=== PATIENT | female | born 1940 | race Caucasian/White ===

== ENCOUNTER 2016-10-02 15:46 | Observation (INO) | payer OTHER, MEDICAID ==
[2016-10-02 18:01] VITALS: BMI 25.3
[2016-10-02 18:13] LABS: BASOPHILS # (AUTO) 0.1 X10^3/uL (0.0-0.1); BASOPHILS % (AUTO) 0.9 % (0.2-1.0); EOSINOPHILS # (AUTO) 0.3 x10^3/uL (0.0-0.2); EOSINOPHILS % (AUTO) 4.7 % (0.9-2.9); HEMATOCRIT 34.1 % (36.0-47.0); LYMPHOCYTES # (AUTO) 1.3 X10^3/uL (1.3-2.9); LYMPHOCYTES % (AUTO) 18.8 % (21.0-51.0); MEAN CORPUSCULAR HEMOGLOBIN 29.6 pg (27.0-34.0); MEAN CORPUSCULAR HGB CONC 32.1 g/dL (33.0-35.0); MEAN PLATELET VOLUME 8.1 fL (7.4-11.0); MONOCYTES # (AUTO) 0.7 x10^3/uL (0.3-0.8); MONOCYTES % (AUTO) 9.3 % (0.0-13.0); NEUTROPHILS # (AUTO) 4.7 x10^3/uL (2.2-4.8); NEUTROPHILS % (AUTO) 66.3 % (42.0-75.0); PLATELET COUNT 141 X10^3/uL (150.0-450.0); RED BLOOD COUNT 3.71 X10^6/uL (3.5-5.4); RED CELL DISTRIBUTION WIDTH 14.1 % (11.6-16.5)
[2016-10-02 18:20] LABS: ALBUMIN 3.3 g/dL (3.4-5.0); CALCIUM 8.7 mg/dL (8.5-10.1); CARBON DIOXIDE 24.2 mmol/L (21-32); COR CA(FOR HYPOALB) 9.3 mg/dL (8.5-10.1); CREATININE 2.4 mg/dL (0.55-1.02); MAGNESIUM 1.8 mg/dL (1.7-2.9)
[2016-10-02 18:34] LABS: CKMB % 2.6 % (<4); CREATINE KINASE 39 Units/L (26-192); CREATINE KINASE MB < 1.0 ng/mL (0-4.0); TROPONIN I < 0.02 ng/mL (0-1.5)
[2016-10-02 19:09] LABS: BILIRUBIN,URINE NEGATIVE (NEGATIVE); BLOOD/HEMOGLOBIN,URINE 2+ (NEGATIVE); GLUCOSE, URINE NEGATIVE (NEGATIVE); KETONES,URINE NEGATIVE (NEGATIVE); LEUKOCYTE ESTERASE ,URINE 3+ (NEGATIVE); NITRITES,URINE NEGATIVE (NEGATIVE); PROTEIN,URINE 2+ (NEGATIVE); UROBILINOGEN,URINE NORMAL (NORMAL)
[2016-10-02 19:15] LABS: APPEARANCE,URINE HAZY (CLEAR); COLOR,URINE YELLOW (YELLOW)
[2016-10-02 19:16] LABS: BACTERIA,URINE 1+ /HPF (NEGATIVE); SQUAMOUS EPITHELIAL CELL,UR FEW /HPF (NEGATIVE)
[2016-10-02] MEDS ORDERED: ROCEPHIN VIAL 1 GM 1 GM in NS 50 ML IV + SPIKE MINIBAG* 50 ML IV SCH (20:00)
[2016-10-02] MEDS ORDERED: NS 1000 ML 1,000 ML IV SCH (20:00)
--- NOTE | 2016-10-02 20:49 | RAD ---
Chest AP portable Indication: Chest pain renal failure. Findings: Pacemaker leads project as expected. Cardiac monitoring leads obscure some detail. There i s no pneumothorax come effusion or consolidation. Aortic arch plaque noted. Heart size is within nor mal limits for technique. Impression: No acute chest process. Followup with PA and lateral chest as needed for increased sensi tivity. Reported By:
[2016-10-02] MEDS ORDERED: ARICEPT TAB 10 MG PO SCH (21:00)
[2016-10-02] MEDS ORDERED: LOVENOX INJ 30 MG SYR SC SCH ×2 (21:00)
[2016-10-02] MEDS ORDERED: ZOCOR TAB 20 MG PO SCH (21:00)
[2016-10-02] MEDS: NEURONTIN CAP 300 MG PO SCH (21:05)
--- NOTE | 2016-10-02 22:12 | DR.H&P ---
H&P - History & Physical for Day of: H&P Date: 10/02/16 - Chief Complaint Chief Complaint: Chest pain and Fatigue - Allergies Allergies/Adverse Reactions: Allergies Allergy/AdvReac Type Severity Reaction Status Date / Time Hydrocodone Allergy Verified 10/02/16 18:08 - History of Present Illness History of Present Illness: The patient is a 76yo WF who presents to [facility] with complaints of fatigue. The patient has for last 4mths had increasing fatigue. Patient states she can't hold out to clean or walk short distances.On Thursday patient had episode of chest pain and saw local discharging machine operator who did echo and revealed EF 35% and a "leaking valve." Patient does have significant history of CAD with 3 MIs. Last cath was 4yrs ago and had vessel 100% that was stented. Patient does have chronic kidney failure and dialysis was considered after cath 4yrs, but kidney function improved. - Past Medical History Past Medical History: Anxiety, CHF (Systolic with EF 35%), COPD, Coronary Artery Disease, Diabetes, GERD, Hypertension, Hypothyroidism, [place], Renal Disease Additional Medical History: Subdural bleed, Cystocele uses pessary, Atrial fibrillation, Chronic respiatory failure but refuses to wear O2 at HS, Carotid artery occlusion. - Past Surgical History Surgical History: Angioplasty/Stents, Hysterectomy - Family History Family Medical History: Diabetes Mellitus, Cancer, Coronary Artery Disease, Hypertension - Social History Does patient currently use any type of tobacco product: No Have you used tobacco products in the last 12 months: No Type of Tobacco Use: None Does any household member use tobacco: No Alcohol Use: None Drug Use: None - Medications Home Medications: Aspirin [Aspirin 81 mg Chewtab] 81 mg PO DAILY 10/02/16 [History Confirmed 10/02] Donepezil Hydrochloride [Aricept Tab 10 mg] 10 mg PO HS 10/02/16 [History Confirmed 10/02/16] Escitalopram Oxalate [Lexapro] 10 mg PO DAILY 10/02/16 [History Confirmed ] Esomeprazole Magnesium [Nexium] 40 mg PO DAILY 10/02/16 [History Confirmed 10/02] Gabapentin [Gabapentin] 1 cap PO TID 10/02/16 [History Confirmed 10/02/16] Glimepiride [Glimepiride] 2 mg PO DAILY 10/02/16 [History Confirmed 10/02/16] Levothyroxine Sodium [SYNTHROID 88 mcg *] 1 tab PO DAILYAC 10/02/16 [History Confirmed 10/02/16] Metoprolol Succinate Ext Rel [Toprol Xl] 25 mg PO DAILY 10/02/16 [History Confirmed 10/02/16] Ramipril [Altace 1.25 mg] 1.25 mg PO DAILY 10/02/16 [History Confirmed 10/02/16] Simvastatin [Zocor Tab 20 mg] 20 mg PO HS 10/02/16 [History Confirmed 10/02/16] - Review of Systems Constitutional: Weakness, Malaise Eyes: No Symptoms Reported ENT: No Symptoms Reported Respiratory: No Symptoms Reported Cardiovascular: Chest Pain Gastrointestinal: No Symptoms Reported Genitourinary: No Symptoms Reported Musculoskeletal: No Symptoms Reported Skin: No Symptoms Reported Neurological: No Symptoms Reported - Physical Exam Vital Signs: Temperature 97.7 F Pulse Rate [Left Brachial] 64 Respiratory Rate 13 Blood Pressure [Left Arm] 147/63 Oriented: Normal Eyes: Normal Ear: Normal Nose: Normal Throat: Normal Respiratory: Clear Throughout Cardiovascular: Normal : Normal, Other (Uses pessary) Auscultation: Bowel Sounds: Normal Palpation: Normal Tenderness: Normal Skin: Normal Musculoskeletal: Normal (Uses walker) Psychiatric: Normal Mood Description: Calm Affect: Normal Speech Pattern: Clear - Assessment/Plan (1) Chest pain with high risk for cardiac etiology Status: Acute Plan: Cardiac enzymes, EKGs (2) Fatigue Qualifiers: Fatigue type: F Encounter type: E Trimester: T Status: Acute Plan: Labs, IVFs (3) Chronic kidney disease Qualifiers: Chronic kidney disease stage: C Status: Acute Plan: IVFs. BMP AM (4) UTI (urinary tract infection) Qualifiers: Urinary tract infection type: acute cystitis Hematuria presence: H Indwelling urinary catheter type: I Encounter type: E Status: Acute Plan: Rocephin IV. Culture pending
[2016-10-02 23:44] LABS: CKMB % 3.6 % (<4); CREATINE KINASE 28 Units/L (26-192); CREATINE KINASE MB < 1.0 ng/mL (0-4.0); TROPONIN I < 0.02 ng/mL (0-1.5)
[2016-10-03] MEDS: NEURONTIN CAP 300 MG PO SCH (05:15)
[2016-10-03 06:01] LABS: BASOPHILS % (AUTO) 0.9 % (0.2-1.0); EOSINOPHILS # (AUTO) 0.3 x10^3/uL (0.0-0.2); EOSINOPHILS % (AUTO) 5.8 % (0.9-2.9); HEMOGLOBIN 10.5 g/dL (12.0-16.0); LYMPHOCYTES # (AUTO) 1.3 X10^3/uL (1.3-2.9); LYMPHOCYTES % (AUTO) 23.3 % (21.0-51.0); MEAN CORPUSCULAR HEMOGLOBIN 29.7 pg (27.0-34.0); MEAN CORPUSCULAR HGB CONC 32.8 g/dL (33.0-35.0); MEAN CORPUSCULAR VOLUME 90.6 fL (80.0-100.0); MEAN PLATELET VOLUME 8.5 fL (7.4-11.0); MONOCYTES # (AUTO) 0.6 x10^3/uL (0.3-0.8); MONOCYTES % (AUTO) 11.3 % (0.0-13.0); NEUTROPHILS # (AUTO) 3.2 x10^3/uL (2.2-4.8); NEUTROPHILS % (AUTO) 58.7 % (42.0-75.0); PLATELET COUNT 129 X10^3/uL (150.0-450.0); RED BLOOD COUNT 3.53 X10^6/uL (3.5-5.4); RED CELL DISTRIBUTION WIDTH 13.8 % (11.6-16.5); WHITE BLOOD COUNT 5.5 X10^3/uL (3.6-10.0)
[2016-10-03 06:28] LABS: BLOOD UREA NITROGEN 52 mg/dL (7-18); CALCIUM 8.2 mg/dL (8.5-10.1); CHLORIDE 109 mmol/L (98-107); CKMB % 3.6 % (<4); COR NA(FOR HYPERGLY) 143 mmol/L (136-145); CREATINE KINASE 28 Units/L (26-192); CREATINE KINASE MB < 1.0 ng/mL (0-4.0); CREATININE 2.25 mg/dL (0.55-1.02); GLUCOSE 121 mg/dL (65-99); SODIUM 142 mmol/L (136-145); TROPONIN I < 0.02 ng/mL (0-1.5); eGFR BLACK RACES 27 (>60); eGFR NON BLACK RACES 22 (>60)
[2016-10-03 06:29] VITALS: BP 167/69
[2016-10-03 06:41] LABS: CHOL/HDL RATIO 4.3 (0.0-5.0)
[2016-10-03] MEDS ORDERED: PATIENT'S HOME MEDICATION PO SCH (09:00)
[2016-10-03] MEDS ORDERED: TOPROL XL PO SCH (09:00)
[2016-10-03] MEDS ORDERED: AMARYL TAB 4 MG PO SCH (09:00)
[2016-10-03] MEDS ORDERED: ASPIRIN 81 MG CHEWTAB PO SCH (09:00)
[2016-10-03] MEDS ORDERED: LEXAPRO PO SCH (09:00)
[2016-10-03] MEDS ORDERED: NexIUM PO SCH (09:00)
[2016-10-03] MEDS ORDERED: NS 1000 ML 1,000 ML IV SCH (09:20)
[2016-10-03] MEDS ORDERED: SYNTHROID 88 mcg TAB PO SCH (16:30)
== END 2016-10-03 07:00 | disposition short-term general hospital (02) ==
LOC: ICU 15:46
PROVIDERS: ADMIT Internal Medicine; ATTEND Internal Medicine
DX: R07.89 Other chest pain (principal); R06.02 Shortness of breath; I25.10 Atherosclerotic heart disease of native coronary artery without angina pectoris; N30.00 Acute cystitis without hematuria; R53.83 Other fatigue; E03.8 Other specified hypothyroidism; K21.9 Gastro-esophageal reflux disease without esophagitis; B96.29 Other Escherichia coli [E. coli] as the cause of diseases classified elsewhere; R74.8 Abnormal levels of other serum enzymes; E11.65 Type 2 diabetes mellitus with hyperglycemia; N17.8 Other acute kidney failure; J44.9 Chronic obstructive pulmonary disease, unspecified; I12.9 Hypertensive chronic kidney disease with stage 1 through stage 4 chronic kidney disease, or unspecified chronic kidney disease; N18.9 Chronic kidney disease, unspecified; R94.31 Abnormal electrocardiogram [ECG] [EKG]
CPT/HCPCS: 36415; 71010; 80048; 80053; 80061; 81001; 82550; 82553; 83735; 84484; 85025; 85610; 85730; 87086; 87088; 87186; 93005; 93010; A4222; G0378; J0696; J1650

== ENCOUNTER 2021-04-29 10:14 | Inpatient (IN) ==
[2021-04-29 10:32] VITALS: BMI 22.6
[2021-04-29] MEDS ORDERED: ZOFRAN INJ 4 MG VIAL IVP ONE (10:57)
--- NOTE | 2021-04-29 10:57 | DR.EXTPAIN ---
HPI Time seen Time Seen by Provider: 04/29/21 10:38 PCP Primary Care Physician: Lonnie Complaint/Symptoms Chief Complaint Doctor Comments: 81 y/o female sent over from the [place] for evaluation. Has a tender area of her left buttock for several days. No known trauma. Pt is fairly bedridden. Was started on cipro few days ago, wound is reportedly + for MRSA. Area is painful, dull, does not radiate. Pain is sharp with palpation. Nothing makes it better. Pt had an episode of nausea with vomiting this am, currently better. Denies abdominal pain, no fever or chills. Chief Complaint:: Pt states she was brought to the ER for " a bruise on my butt". prison staff reports pt has a large wound that is growing MRSA. Pt also c/o n/v this am. COVID-19 Coronavirus risk:travel/contact w/high risk person: No Has patient experienced Coronavirus symptoms: No Nurses notes reviewed Nurses Notes Review: Yes Source History Provided: Patient and Half-Way Mode of arrival Mode of Arrival: Stretcher Timing Onset of Chief Complaint: 04/29/21 PMH PMH Past Medical History: Yes Past Medical History: Anxiety, CHF, COPD, Coronary Artery Disease, Diabetes, GERD, Hypertension, Hypothyroidism, [place] and Renal Disease Past Surgical History: Yes Surgical History: Angioplasty/Stents and Hysterectomy Family History History of Family Medical Conditions: Yes Family Medical History: Diabetes Mellitus, Cancer, Coronary Artery Disease and Hypertension Social History Alcohol Use: None Lives With: Other Lives Where: [facility]-Way Travel Risk Coronavirus risk:travel/contact w/high risk person: No Has patient experienced Coronavirus symptoms: No Infectious screening In the last 2 months have you had wt loss of >10#?: NO Have you had fever, night sweats or hemotysis?: No Have you traveled outside the country in the last 6 months?: No Isolation: Standard ROS Review of Systems Constitutional: No Symptoms Reported Eyes: No Symptoms Reported ENTM: No Symptoms Reported Respiratoy: No Symptoms Reported Cardiovascular: No Symptoms Reported Gastrointestinal/Abdominal: Nausea and Vomiting Genitourinary: No Symptoms Reported Neurological: No Symptoms Reported Musculoskeletal: No Symptoms Reported Integumentary: Wound (left buttocks) Hematologic/Lymphatic: No Symptoms Reported Psychiatric: No Symptoms Reported All Other Systems: Reviewed and Negative PE Vital Signs Vitals: Temperature 98.1 F Pulse Rate 65 Respiratory Rate 18 Blood Pressure [Left Arm] 167/69 Blood Pressure 135/63 O2 Sat by Pulse Oximetry 97 General Limitations: No Limitations General Appearance: Alert and In No Apparent Distress Eyes Eye exam: Normal Appearance ENT ENT Exam: Normal Exam Neck Neck Exam: Normal Inspection Chest Chest Inspection: Normal Inspection Respiratory Respiratory Exam: Normal Lung Sounds Bilat; negative Accessory Muscle Use and Respiratory Distress Respiratory Exam: Bilateral: Clear to Auscultation Cardiovascular Cardiovascular Exam: Regular Rate, Normal Rhythm and Normal Heart Sounds Abdominal Exam Abdominal Exam: Normal Inspection, Normal Bowel Sounds and Soft; negative Tenderness Extremities Extremities Exam: Normal Inspection Neurological Neurological Exam: Alert, Oriented X3 and CN II-XII Intact; negative Motor Sensory Deficit Psychiatric Psychiatric Exam: Normal Affect Skin Skin Exam: Warm, Dry and Other (Left buttocks, 3 x 4 cm soft, tender, ecchymotic area with skin breakdown.) COURSE Treatment Treatment: 81 y/o female sent over from the [place] for evaluation. Has a tender left buttock wound, with skin breakdown. Had an episode of vomiting this am. W/u init iated. Given IV fluids, IV zofran. 1152- labs show acute kidney injury - elevated BUN/Cr. Cr 4.66, was 2.0 on last lab last month. WBC elevated to 15,900. Discussed with Dr Fleming, will admit for hydration. ROR Labs Reviewed Laboratory Results Reviewed?: Yes Result Diagrams: 04/29/21 11:10 04/29/21 11:10 Laboratory: WBC 15.9 X10^3/uL (3.6-10.0) H 04/29/21 11:10 RBC 3.37 X10^6/uL (3.5-5.4) L 04/29/21 11:10 Hgb 9.8 g/dL (12.0-16.0) L 04/29/21 11:10 Hct 29.6 % (36.0-47.0) L 04/29/21 11:10 MCV 87.6 fL (80.0-100.0) 04/29/21 11:10 MCH 29.0 pg (27.0-34.0) 04/29/21 11:10 MCHC 33.1 g/dL (33.0-35.0) 04/29/21 11:10 RDW 15.1 % (11.6-16.5) 04/29/21 11:10 Plt Count 155 X10^3/uL (150.0-450.0) 04/29/21 11:10 MPV 7.6 fL (7.4-11.0) 04/29/21 11:10 Neut % (Auto) 87.1 % (42.0-75.0) H 04/29/21 11:10 Lymph % (Auto) 5.9 % (21.0-51.0) L 04/29/21 11:10 [place] % (Auto) 5.9 % (0.0-13.0) 04/29/21 11:10 Eos % (Auto) 0.9 % (0.9-2.9) 04/29/21 11:10 Baso % (Auto) 0.2 % (0.2-1.0) 04/29/21 11:10 Neut # (Auto) 13.8 x10^3/uL (2.2-4.8) H 04/29/21 11:10 Lymph # (Auto) 0.9 X10^3/uL (1.3-2.9) L 04/29/21 11:10 [place] # (Auto) 0.9 x10^3/uL (0.3-0.8) H 04/29/21 11:10 Eos # (Auto) 0.1 x10^3/uL (0.0-0.2) 04/29/21 11:10 Baso # (Auto) 0.0 X10^3/uL (0.0-0.1) 04/29/21 11:10 Absolute Nucleated RBC 0.0 /100WBC 04/29/21 11:10 Sodium 134 mmol/L (136-145) L 04/29/21 11:10 Corrected Sodium TNP 04/29/21 11:10 Potassium 5.2 mmol/L (3.5-5.1) H 04/29/21 11:10 Chloride 104 mmol/L (98-107) 04/29/21 11:10 Carbon Dioxide 17.5 mmol/L (21-32) L 04/29/21 11:10 BUN 94 mg/dL (7-18) H 04/29/21 11:10 Creatinine 4.66 mg/dL (0.55-1.02) H 04/29/21 11:10 Est GFR (MDRD) Af Amer 12 (>60) L 04/29/21 11:10 Est GFR (MDRD) Non-Af 10 (>60) L 04/29/21 11:10 Glucose 69 mg/dL (65-99) 04/29/21 11:10 Lactic Acid 0.6 mmol/L (0.4-2.0) 04/29/21 11:10 Calcium 8.3 mg/dL (8.5-10.1) L 04/29/21 11:10 Corrected Calcium 9.6 mg/dL (8.5-10.1) 04/29/21 11:10 Total Bilirubin 0.40 mg/dL (0.2-1.0) 04/29/21 11:10 AST 19 Units/L (15-37) 04/29/21 11:10 ALT 11 Units/L (12-78) L 04/29/21 11:10 Alkaline Phosphatase 131 Units/L (46-116) H 04/29/21 11:10 Total Protein 7.2 g/dL (6.4-8.2) 04/29/21 11:10 Albumin 2.4 g/dL (3.4-5.0) L 04/29/21 11:10 Globulin 4.8 g/dL (2.5-4.5) H 04/29/21 11:10 Albumin/Globulin Ratio 0.5 Ratio (1.1-2.1) L 04/29/21 11:10 SARS-CoV-2 (PCR) Negative (NEGATIVE) 04/29/21 11:57 Opioid Opioid Risk Tool Age (Jacky box if 16-45): No History of Preadolescent Sexual Abuse: No Total: 0 Total Score Risk Category: Low Risk Copyright: Jamal BURDICK predicting aberrant behaviors Diagnosis Discharge Problem: Acute nontraumatic kidney injury, Decubitus ulcer of left buttock, stage 2 Instructions Forms: Precautions for COVID19 [facility] Patient Portal Social Distancing
[2021-04-29] MEDS ORDERED: NS 500 ML IV 500 ML IV ONE (10:58)
[2021-04-29] MEDS ORDERED: NS 1,000 ML IV 1,000 ML ONE (11:04)
[2021-04-29] MEDS ORDERED: ZOFRAN INJ 4 MG VIAL ONE (11:04)
[2021-04-29 11:30] LABS: BASOPHILS % (AUTO) 0.2 % (0.2-1.0); EOSINOPHILS # (AUTO) 0.1 x10^3/uL (0.0-0.2); EOSINOPHILS % (AUTO) 0.9 % (0.9-2.9); HEMATOCRIT 29.6 % (36.0-47.0); HEMOGLOBIN 9.8 g/dL (12.0-16.0); LYMPHOCYTES # (AUTO) 0.9 X10^3/uL (1.3-2.9); LYMPHOCYTES % (AUTO) 5.9 % (21.0-51.0); MEAN CORPUSCULAR HGB CONC 33.1 g/dL (33.0-35.0); MEAN CORPUSCULAR VOLUME 87.6 fL (80.0-100.0); MEAN PLATELET VOLUME 7.6 fL (7.4-11.0); MONOCYTES # (AUTO) 0.9 x10^3/uL (0.3-0.8); MONOCYTES % (AUTO) 5.9 % (0.0-13.0); NEUTROPHILS # (AUTO) 13.8 x10^3/uL (2.2-4.8); NEUTROPHILS % (AUTO) 87.1 % (42.0-75.0); PLATELET COUNT 155 X10^3/uL (150.0-450.0); RED BLOOD COUNT 3.37 X10^6/uL (3.5-5.4); RED CELL DISTRIBUTION WIDTH 15.1 % (11.6-16.5); WHITE BLOOD COUNT 15.9 X10^3/uL (3.6-10.0)
[2021-04-29 11:43] LABS: ALANINE AMINOTRANSFERASE 11 Units/L (12-78); ALBUMIN 2.4 g/dL (3.4-5.0); ALKALINE PHOSPHATASE 131 Units/L (46-116); ASPARTATE AMINO TRANSFERASE 19 Units/L (15-37); BLOOD UREA NITROGEN 94 mg/dL (7-18); CALCIUM 8.3 mg/dL (8.5-10.1); CARBON DIOXIDE 17.5 mmol/L (21-32); CHLORIDE 104 mmol/L (98-107); COR CA(FOR HYPOALB) 9.6 mg/dL (8.5-10.1); CREATININE 4.66 mg/dL (0.55-1.02); SODIUM 134 mmol/L (136-145); TOTAL PROTEIN 7.2 g/dL (6.4-8.2); eGFR NON BLACK RACES 10 (>60)
[2021-04-29 11:50] LABS: LACTIC ACID 0.6 mmol/L (0.4-2.0)
[2021-04-29] MEDS ORDERED: COLACE CAP 100 MG PO PRN (14:27)
[2021-04-29] MEDS ORDERED: ULTRAM PO PRN (14:27)
[2021-04-29] MEDS: D5 1/2 NS 1,000 ML 1,000 ML IV SCH ×2 (15:20→21:58)
[2021-04-29] MEDS: ZYVOX 600MG IV 600 MG/300 ML BAG IV SCH ×2 (15:20→21:06)
[2021-04-29] MEDS ORDERED: PHARMACY CONSULT LTC MEDICATIONS XX SCH (16:00)
[2021-04-29] MEDS: NS 1,000 ML IV 1,000 ML IV SCH ×2 (17:00→21:04)
[2021-04-29 17:06] LABS: BILIRUBIN,URINE NEGATIVE (NEGATIVE); BLOOD/HEMOGLOBIN,URINE NEGATIVE (NEGATIVE); GLUCOSE, URINE NEGATIVE (NEGATIVE); KETONES,URINE NEGATIVE (NEGATIVE); LEUKOCYTE ESTERASE ,URINE NEGATIVE (NEGATIVE); NITRITES,URINE NEGATIVE (NEGATIVE); PROTEIN,URINE 2+ (NEGATIVE); UROBILINOGEN,URINE NORMAL (NORMAL)
[2021-04-29 17:14] LABS: APPEARANCE,URINE SLIGHTLY HAZY (CLEAR); BACTERIA,URINE 2+ /HPF (NEGATIVE); COLOR,URINE YELLOW (YELLOW); SQUAMOUS EPITHELIAL CELL,UR RARE /HPF (NEGATIVE)
[2021-04-29] MEDS: SYNTHROID 88 mcg TAB PO SCH (17:35)
--- NOTE | 2021-04-29 18:30 | US ---
HISTORYLARGE BED SORE ON LEFT BUTTOCKSSTUDYSOFT TISSUE ABDOMINAL SONOGRAMCOMPARISONNo relevant prior studies available.[id number] static images were reviewed.FINDINGSNonspecific edema in the soft tissues at the area of clinical concern.No abscess collection identified.IMPRESSION1. Nonspecific edema in the soft tissues at the area of clinical concern.2. No abscess collection identified.Electronically signed by: Patrick Muñoz (Apr 29, 2021 18:28:14)
[2021-04-29] MEDS: ARICEPT TAB 10 MG PO SCH (21:05)
[2021-04-29] MEDS: SNACK - Diabetic Appropriate PO SCH (21:05)
[2021-04-29] MEDS: ZOCOR TAB 20 MG PO SCH (21:05)
[2021-04-29] MEDS: COREG TAB 12.5 MG PO SCH (21:05)
[2021-04-30 05:30] LABS: BASOPHILS % (AUTO) 0.2 % (0.2-1.0); EOSINOPHILS # (AUTO) 0.2 x10^3/uL (0.0-0.2); EOSINOPHILS % (AUTO) 2.1 % (0.9-2.9); HEMATOCRIT 26.8 % (36.0-47.0); HEMOGLOBIN 8.8 g/dL (12.0-16.0); LYMPHOCYTES # (AUTO) 0.9 X10^3/uL (1.3-2.9); LYMPHOCYTES % (AUTO) 7.6 % (21.0-51.0); MEAN CORPUSCULAR HEMOGLOBIN 29.1 pg (27.0-34.0); MEAN CORPUSCULAR VOLUME 88.1 fL (80.0-100.0); MEAN PLATELET VOLUME 7.9 fL (7.4-11.0); MONOCYTES # (AUTO) 0.8 x10^3/uL (0.3-0.8); MONOCYTES % (AUTO) 7.1 % (0.0-13.0); NEUTROPHILS # (AUTO) 9.6 x10^3/uL (2.2-4.8); PLATELET COUNT 132 X10^3/uL (150.0-450.0); RED BLOOD COUNT 3.04 X10^6/uL (3.5-5.4); RED CELL DISTRIBUTION WIDTH 14.8 % (11.6-16.5); WHITE BLOOD COUNT 11.6 X10^3/uL (3.6-10.0)
[2021-04-30 05:39] LABS: ALBUMIN 2.1 g/dL (3.4-5.0); CALCIUM 7.5 mg/dL (8.5-10.1); CARBON DIOXIDE 19.3 mmol/L (21-32); CREATININE 4.1 mg/dL (0.55-1.02); TOTAL PROTEIN 6.4 g/dL (6.4-8.2)
[2021-04-30] MEDS ORDERED: LASIX PO SCH (09:00)
[2021-04-30] MEDS ORDERED: TOPROL XL PO SCH (09:00)
[2021-04-30] MEDS ORDERED: LEXAPRO PO SCH (09:00)
[2021-04-30] MEDS: PLAVIX PO SCH (09:19)
[2021-04-30] MEDS: ASPIRIN 81 MG CHEWTAB PO SCH (09:19)
[2021-04-30] MEDS: ISOSORBIDE MONONITRATE ER 24-HR PO SCH (09:19)
[2021-04-30] MEDS: COREG TAB 12.5 MG PO SCH ×2 (09:19→21:00)
[2021-04-30] MEDS: ZYVOX 600MG IV 600 MG/300 ML BAG IV SCH ×2 (09:20→22:13)
[2021-04-30] MEDS: ZESTRIL TAB 40 MG PO SCH (09:20)
[2021-04-30] MEDS: PROTONIX TAB 40 MG PO SCH (09:20)
[2021-04-30] MEDS ORDERED: NS 500 ML IV 500 ML IV ONE (15:00)
[2021-04-30] MEDS: SYNTHROID 88 mcg TAB PO SCH (16:46)
[2021-04-30] MEDS: NS 1,000 ML IV 1,000 ML IV SCH (18:58)
[2021-04-30] MEDS: SNACK - Diabetic Appropriate PO SCH (20:43)
[2021-04-30] MEDS: D5 1/2 NS 1,000 ML 1,000 ML IV SCH (21:00)
[2021-04-30] MEDS: ZOCOR TAB 20 MG PO SCH (21:00)
[2021-04-30] MEDS: ARICEPT TAB 10 MG PO SCH (21:00)
--- NOTE | 2021-04-30 22:02 | DR.CONSULT ---
CONSULT Consultation for Day of: Date: 04/30/21 Chief Complaint Chief Complaint: 81 year old female currently in local [facility] Facility. She is not ambulatory and presented with red, fluctuant area of her left buttock. Patient has been noted to have increase of creatinine from a baseline of 2 to greater than 4 ,consistent with acute infection and dehydration. Allergies Allergies Allergy/AdvReac Type Severity Reaction Status Date / Time MS Hydrocodone [Hydrocodone] Allergy Verified 10/02/16 18:08 History of Present Illness History of Present Illness: as above . Currently on IV Linezoloid Past Medical History Past Medical History: Anxiety, CHF, COPD, Coronary Artery Disease, Diabetes, GERD, Hypertension, Hypothyroidism, [place] and Renal Disease Additional Medical History: Subdural bleed, Cystocele uses pessary, Atrial fibrillation, Chronic respiatory failure but refuses to wear O2 at HS, Carotid artery occlusion. Past Surgical History Surgical History: Ortho Surgery Family History Family Medical History: Diabetes Mellitus and Hypertension Social History Does patient currently use any type of tobacco product: No Have you used tobacco products in the last 12 months: No Type of Tobacco Use: None Does any household member use tobacco: No Alcohol Use: None Drug Use: None Medications Home Medications: MS Hydrocodone [Hydrocodone] Allergy (Verified 10/02/16 18:08) CONTINUE taking the following medications atorvastatin 40 mg PO HS 04/29/21 [History] carvedilol 12.5 mg PO BID 04/29/21 [History] citalopram [Celexa] 10 mg PO HS 04/29/21 [History] clopidogrel 75 mg PO DAILY 04/29/21 [History] docusate sodium [Colace] 100 mg PO BID PRN 04/29/21 [History] furosemide 20 mg PO DAILY 04/29/21 [History] insulin regular human [Novolin R Regular U-100 Insuln] 1 sliding scale dose SUBCUT USEASDIRECTD 04/29/21 [History] isosorbide mononitrate 60 mg PO DAILY 04/29/21 [History] lisinopril 40 mg PO DAILY 04/29/21 [History] ondansetron HCl [Zofran] 4 mg PO Q8H PRN 04/29/21 [History] pantoprazole [Protonix] 40 mg PO QAM 04/29/21 [History] phenyleph-shark [id number] [Preparation H] 1 applic GA BID PRN 04/29/21 [History] tramadol 50 mg PO Q8H PRN 04/29/21 [History] Hgb =8.8, WBC=11.6, Cr= 4.1 04/30 04/29 WBC= 15.9, Cr+4.66 Review of Systems Constitutional: No Symptoms Reported; denies See HPI, Fever, Sweats, Weakness, Malaise and Other Eyes: No Symptoms Reported ENT: No Symptoms Reported Respiratory: No Symptoms Reported Cardiovascular: No Symptoms Reported Gastrointestinal: No Symptoms Reported Genitourinary: No Symptoms Reported Musculoskeletal: No Symptoms Reported Skin: Other (swelliThe holiday special ng left buttock with small amount of bloody drainage ) Neurological: Other (reported anxiety) Physical Exam Vital Signs: Temperature 99.1 F Pulse Rate [Bilateral Radial] 73 Pulse Rate 65 Respiratory Rate 19 Blood Pressure [Left Arm] 128/56 Blood Pressure 135/63 O2 Sat by Pulse Oximetry 92 Oriented: Person; negative Normal, Time, Place, Not Oriented, Unable to test and Other Eyes: Normal Ear: Normal Nose: Normal Throat: Normal Respiratory: Clear Throughout Cardiovascular: Normal : Normal Tenderness: Normal Skin: Normal Musculoskeletal: Normal (but globally weak) Psychiatric: Anxiety and Depression Mood Description: Calm Affect: Flat Plan (1) Abscess of left buttock: Status: Acute Plan: Continue IV Linezolid , plan incision and drainage of the left buttock, continue hydration, monito blood sugars (2) Diabetes 1.5, managed as type 1: Status: Acute (3) Coronary artery disease: Status: Acute (4) Hypertension: Status: Acute (5) Hypothyroid: Status: Acute (6) GERD (gastroesophageal reflux disease): Status: Acute (7) Anxiety: Status: Acute (8) Acute nontraumatic kidney injury: Status: Acute
[2021-05-01 05:41] LABS: BASOPHILS % (AUTO) 0.1 % (0.2-1.0); EOSINOPHILS # (AUTO) 0.2 x10^3/uL (0.0-0.2); EOSINOPHILS % (AUTO) 1.6 % (0.9-2.9); HEMATOCRIT 24.7 % (36.0-47.0); HEMOGLOBIN 8.2 g/dL (12.0-16.0); LYMPHOCYTES # (AUTO) 0.8 X10^3/uL (1.3-2.9); LYMPHOCYTES % (AUTO) 6.5 % (21.0-51.0); MEAN CORPUSCULAR HEMOGLOBIN 29.1 pg (27.0-34.0); MEAN CORPUSCULAR HGB CONC 33.1 g/dL (33.0-35.0); MEAN PLATELET VOLUME 7.8 fL (7.4-11.0); MONOCYTES # (AUTO) 0.9 x10^3/uL (0.3-0.8); MONOCYTES % (AUTO) 7.2 % (0.0-13.0); NEUTROPHILS # (AUTO) 10.7 x10^3/uL (2.2-4.8); NEUTROPHILS % (AUTO) 84.6 % (42.0-75.0); PLATELET COUNT 129 X10^3/uL (150.0-450.0); RED BLOOD COUNT 2.81 X10^6/uL (3.5-5.4); RED CELL DISTRIBUTION WIDTH 14.7 % (11.6-16.5); WHITE BLOOD COUNT 12.6 X10^3/uL (3.6-10.0)
[2021-05-01 05:55] LABS: ALANINE AMINOTRANSFERASE 10 Units/L (12-78); ALBUMIN 1.9 g/dL (3.4-5.0); ALKALINE PHOSPHATASE 119 Units/L (46-116); ASPARTATE AMINO TRANSFERASE 20 Units/L (15-37); BLOOD UREA NITROGEN 74 mg/dL (7-18); CALCIUM 7.3 mg/dL (8.5-10.1); CARBON DIOXIDE 15.2 mmol/L (21-32); CHLORIDE 104 mmol/L (98-107); CREATININE 3.82 mg/dL (0.55-1.02); SODIUM 131 mmol/L (136-145); TOTAL PROTEIN 5.9 g/dL (6.4-8.2); eGFR NON BLACK RACES 12 (>60)
[2021-05-01] MEDS ORDERED: D50W ABBOJECT SYR IV ONE ×2 (06:02→17:40)
[2021-05-01] MEDS ORDERED: D50W ABBOJECT SYR ONE ×2 (06:04→17:39)
[2021-05-01] MEDS: ISOSORBIDE MONONITRATE ER 24-HR PO SCH (08:58)
[2021-05-01] MEDS: COREG TAB 12.5 MG PO SCH ×2 (08:58→20:47)
[2021-05-01] MEDS: ASPIRIN 81 MG CHEWTAB PO SCH (08:58)
[2021-05-01] MEDS: PLAVIX PO SCH (08:58)
[2021-05-01] MEDS: PROTONIX TAB 40 MG PO SCH (08:59)
[2021-05-01] MEDS: ZESTRIL TAB 40 MG PO SCH (09:00)
[2021-05-01] MEDS: ZYVOX 600MG IV 600 MG/300 ML BAG IV SCH ×2 (09:00→20:48)
[2021-05-01] MEDS: D5 1/2 NS 1,000 ML 1,000 ML IV SCH (10:03)
[2021-05-01] MEDS ORDERED: FENTANYL VIAL INJ 100 mcg ONE (12:49)
[2021-05-01] MEDS ORDERED: PEPCID 20 MG IV PREMIX* 50 ML IV ONE (12:49)
[2021-05-01] MEDS ORDERED: NS 1,000 ML IV 1,000 ML ONE (13:03)
[2021-05-01] MEDS ORDERED: VERSED ONE (13:15)
[2021-05-01] MEDS ORDERED: DIPRIVAN VIAL ONE (13:15)
[2021-05-01] MEDS ORDERED: KETALAR ONE (13:15)
[2021-05-01] MEDS ORDERED: MARCAINE 0.5% ONE (13:54)
[2021-05-01] MEDS ORDERED: BETADINE SOLN ONE (14:06)
--- NOTE | 2021-05-01 15:22 | OR.IMMED ---
IMMEDIATE POST-OP NOTE Immediate Post-Op Note Pre-Op Diagnosis: Buttock abscess 10 x 10 by 5 cm., lack of adequate IV access Post-Op Diagnosis: Same Procedure: incision and drainage simple left buttock abscess [id number] cm , right internal jugular vein triple Lumen catheter placement Description of Procedure: see operative summary Surgeon/Pattern Room Attendant: Leidy Findings: as above Specimens Removed: none Estimated Blood Loss: < 20 cc Drains: NONE Complications: none Progress Notes: To PACU then to floor , CXR showed good placement triple lumen catheter, no obvious pneumothorax , continue IV antibiotics, cultures obtained, daily dressing changes of abscess Condition: Stable Final Diagnosis: left buttock abscess, pre renal azotemia
--- NOTE | 2021-05-01 15:35 | RAD ---
HISTORYCENTRAL LINE PLACEMENT.brSTUDYCHEST, 1 VIEWCOMPARISONJune 2020OUR [facility] HOSPITALNIQUEChes radiographic imaging, AP portable projection, 2 imagesFINDINGSMild cardiomegaly.Pacemaker in place.Right internal jugular central line tip is near the cavoatrial junction; partially occluded by the overlying wires to the pacemaker.No focal airspace disease.No pleural effusion.No pneumothorax.No acute osseous abnormality.IMPRESSION1. Left basilar airspace disease could represent atelectasis or infiltrate.2. Right internal jugular central line tip is near the cavoatrial junction; partially occluded by the overlying wires to the pacemaker.Electronically signed by: Patrick Muñoz (May 01, 2021 15:32:09)
--- NOTE | 2021-05-01 15:45 | DR.OPNOTE ---
OP NOTE Pre-Op Diagnosis: Left buttock abscess Post-Op Diagnosis: same Procedure Date Date Of Procedure: 05/01/21 Procedure: The patient was taken to the operative suite and placed in the right lateral position. Time out for the procedure obtained. Left buttock area prepped and draped in sterile fashion. Transverse 10cm incision was placed over the abscess, gross purulence obtained , Cultures obtained and abscess cavity irrigated. Packed with Kerlix gauze, covered with 4x4s and an ABD dressing and mesh panties applied. Type of Anesthesia: Local (10 cc 0.5 5 Marcaine) Anesthesia Comment: plus MAC Findings: 10 by 10 by 5 cm abscess left buttock Specimen/Pathology: cultures left buttock abscess Type of Fluids Used:: Lactated Ringers EBL: minimal Drains/Tubes Placed: None Cultures: yes Complications:: none Needle/Sponge Count:: correct Disposition/Condition: Pt. tolerated procedure without difficulty. Taken to PACU in stable condition.
--- NOTE | 2021-05-01 15:53 | DR.OPNOTE ---
OP NOTE Pre-Op Diagnosis: left buttock abscess, lack of IV access Post-Op Diagnosis: same Procedure Date Date Of Procedure: 05/01/21 Procedure: After completion of the incision and drainage of the left buttock abscess, the patient was placed in the Supine position and the right chest and neck prepped and draped in sterile fashion. Time out for the procedure obtained. Patient in the Trendelenburg position. The skin underlying the right clavicle was infiltrated with 0. 5% Marcaine . The right side was selected as the patient has a pacemaker/ defibrillator on the left side. Multiple attempts to puncture the right subclavian vein were not successful. At this point ultra- sonography was used to identify the right internal jugular vein and the skin overlying it infiltrated with 0. 5% Marcaine and the right internal jugular vein punctured with the 16 gauge needle and guidewire placed. Needle removed. Insion made over the wire at the skin level and dilator placed over the wire into the right internal jugular vein. Dilator removed and exchanged for the triple lumen catheter which was placed over the guide wire and the guidewire removed. All ports aspirated of blood and flushed with heparinized saline . The catheter secure to the skin with interrupted sutures after applying Biopatch over the entrance to the skin. Post-procedure chest x-ray showed no obvious pneumothorax with good placement of the catheter. Type of Anesthesia: Local (0.5 % Marcaine ) Anesthesia Comment: plus MAC Findings: as above EBL: minimal Complications:: none Needle/Sponge Count:: correct Disposition/Condition: Pt. tolerated procedure without difficulty. taken to PACU in stable condition.
[2021-05-01] MEDS: SYNTHROID 88 mcg TAB PO SCH ×2 (17:30→17:37)
[2021-05-01] MEDS: ARICEPT TAB 10 MG PO SCH (20:47)
[2021-05-01] MEDS: SNACK - Diabetic Appropriate PO SCH (20:47)
[2021-05-01] MEDS: ZOCOR TAB 20 MG PO SCH (20:48)
[2021-05-02] MEDS: NovoLIN R (or HumuLIN R) SUBCUT PRN ×4 (06:17→20:37)
[2021-05-02] MEDS: D5 1/2 NS 1,000 ML 1,000 ML IV SCH (06:18)
[2021-05-02] MEDS: ASPIRIN 81 MG CHEWTAB PO SCH (08:51)
[2021-05-02] MEDS: PLAVIX PO SCH (08:51)
[2021-05-02] MEDS: COREG TAB 12.5 MG PO SCH ×2 (08:51→20:34)
[2021-05-02] MEDS: MILK OF MAGNESIA PO SCH (08:51)
[2021-05-02] MEDS: ZESTRIL TAB 40 MG PO SCH (08:51)
[2021-05-02] MEDS: PROTONIX TAB 40 MG PO SCH (08:51)
[2021-05-02] MEDS: ISOSORBIDE MONONITRATE ER 24-HR PO SCH (08:51)
[2021-05-02] MEDS: ZYVOX 600MG IV 600 MG/300 ML BAG IV SCH ×2 (08:51→20:34)
[2021-05-02] MEDS: NS 1,000 ML IV 1,000 ML IV SCH (10:04)
--- NOTE | 2021-05-02 10:18 | PCM.PROG ---
Progress Note Progress Note for Day of Date of Exam: 05/02/21 Subjective Subjective: Patient seen at bedside, no events overnight. Patient was noted to have low blood glucose yesterday evening 35 and was started back on D51/2 NS. Her FSBG have been elevated this morning, high 300s. She reports eating well. She did have left buttock I&D yesterday. She also had central line placed due to poor venous access. Labs ordered for today Wound Cx: Gram (-) rods, Prev Cx MRSA Blood Cx (-) Plan: Continue wound care, IV antibiotics. Follow surgery recommendations. Will switch to NS at 50cc/hr. Monitor FSBG. Follow labs from today. Follow final Cx. Discussed with family member at bedside. Monitor AM labs. Past Medical Family Social History Past Med/Fam/Surg Hx: No changes since H&P Allergies: Allergies hydrocodone Allergy (Verified 05/01/21 08:16) Review of Systems ROS: No change since H&P Vital Signs and I&O's Vital Signs: Temperature 98.1 F Pulse Rate [Bilateral Radial] 80 Pulse Rate 69 Respiratory Rate 21 Blood Pressure [Left Arm] 133/64 Blood Pressure 107/52 O2 Sat by Pulse Oximetry 100 Intake and Output: Intake & Output 04/29/21 04/30/21 05/01/21 05/02/21 23:59 23:59 23:59 23:59 Intake Total 1232 / 1232 2976 / 2976 1718 / 1718 600 / 600 Output Total 0 / 0 100 / 100 Balance 1232 / 1232 2976 / 2976 1618 / 1618 600 / 600 Physical Exam Oriented: Person; negative Normal, Time, Place, Not Oriented, Unable to test and Other Eyes: Normal Ear: Normal Nose: Normal Throat: Normal Respiratory: Generalized and Diminished Cardiovascular: Normal Auscultation: Bowel Sounds: Normal Tenderness: Normal Skin: Normal Musculoskeletal: Normal (but globally weak) Psychiatric: Anxiety and Depression Mood Description: Calm Affect: Flat Speech Pattern: Clear and Appropriate Laboratory and Diagnostics Result Diagrams: 05/01/21 04:55 05/01/21 17:50 Labs: 05/01/21 14:17 Buttock Wound Gram Stain - Final 05/01/21 14:17 Buttock Wound Culture - Preliminary 04/29/21 11:10 Blood Blood Culture - Preliminary 04/29/21 11:05 Blood Blood Culture - Preliminary 04/29/21 16:57 Urine,Catheterized Urine Culture - Final Laboratory WBC 12.6 X10^3/uL (3.6-10.0) H 05/01/21 04:55 RBC 2.81 X10^6/uL (3.5-5.4) L 05/01/21 04:55 Hgb 8.2 g/dL (12.0-16.0) L 05/01/21 04:55 Hct 24.7 % (36.0-47.0) L 05/01/21 04:55 MCV 88.0 fL (80.0-100.0) 05/01/21 04:55 MCH 29.1 pg (27.0-34.0) 05/01/21 04:55 MCHC 33.1 g/dL (33.0-35.0) 05/01/21 04:55 RDW 14.7 % (11.6-16.5) 05/01/21 04:55 Plt Count 129 X10^3/uL (150.0-450.0) L 05/01/21 04:55 MPV 7.8 fL (7.4-11.0) 05/01/21 04:55 Neut % (Auto) 84.6 % (42.0-75.0) H 05/01/21 04:55 Lymph % (Auto) 6.5 % (21.0-51.0) L 05/01/21 04:55 [place] % (Auto) 7.2 % (0.0-13.0) 05/01/21 04:55 Eos % (Auto) 1.6 % (0.9-2.9) 05/01/21 04:55 Baso % (Auto) 0.1 % (0.2-1.0) L 05/01/21 04:55 Neut # (Auto) 10.7 x10^3/uL (2.2-4.8) H 05/01/21 04:55 Lymph # (Auto) 0.8 X10^3/uL (1.3-2.9) L 05/01/21 04:55 [place] # (Auto) 0.9 x10^3/uL (0.3-0.8) H 05/01/21 04:55 Eos # (Auto) 0.2 x10^3/uL (0.0-0.2) 05/01/21 04:55 Baso # (Auto) 0.0 X10^3/uL (0.0-0.1) 05/01/21 04:55 Absolute Nucleated RBC 0.0 /100WBC 05/01/21 04:55 Sodium 131 mmol/L (136-145) L 05/01/21 04:55 Corrected Sodium TNP 05/01/21 04:55 Potassium 4.3 mmol/L (3.5-5.1) 05/01/21 04:55 Chloride 104 mmol/L (98-107) 05/01/21 04:55 Carbon Dioxide 15.2 mmol/L (21-32) L 05/01/21 04:55 BUN 74 mg/dL (7-18) H 05/01/21 04:55 Creatinine 3.82 mg/dL (0.55-1.02) H 05/01/21 04:55 Est GFR (MDRD) Af Amer 15 (>60) L 05/01/21 04:55 Est GFR (MDRD) Non-Af 12 (>60) L 05/01/21 04:55 Glucose 41 mg/dL (65-99) L* 05/01/21 17:50 POC Glucose (mg/dL) 386 mg/dL (65-99) H 05/02/21 08:54 Lactic Acid 0.6 mmol/L (0.4-2.0) 04/29/21 11:10 Calcium 7.3 mg/dL (8.5-10.1) L 05/01/21 04:55 Corrected Calcium 9.0 mg/dL (8.5-10.1) 05/01/21 04:55 Total Bilirubin 0.50 mg/dL (0.2-1.0) 05/01/21 04:55 AST 20 Units/L (15-37) 05/01/21 04:55 ALT 10 Units/L (12-78) L 05/01/21 04:55 Alkaline Phosphatase 119 Units/L (46-116) H 05/01/21 04:55 Total Protein 5.9 g/dL (6.4-8.2) L 05/01/21 04:55 Albumin 1.9 g/dL (3.4-5.0) L 05/01/21 04:55 Globulin 4.0 g/dL (2.5-4.5) 05/01/21 04:55 Albumin/Globulin Ratio 0.5 Ratio (1.1-2.1) L 05/01/21 04:55 Specimen Type Catherized urine 04/29/21 16:57 Urine Color Yellow (YELLOW) 04/29/21 16:57 Urine Appearance Slightly hazy (CLEAR) 04/29/21 16:57 Urine pH 5.0 (5.0 - 8.0) 04/29/21 16:57 Ur Specific [place] 1.020 (1.000-1.030) 04/29/21 16:57 Urine Protein 2+ (NEGATIVE) 04/29/21 16:57 Urine Glucose (UA) Negative (NEGATIVE) 04/29/21 16:57 Urine Ketones Negative (NEGATIVE) 04/29/21 16:57 Urine Occult Blood Negative (NEGATIVE) 04/29/21 16:57 Urine Nitrite Negative (NEGATIVE) 04/29/21 16:57 Urine Bilirubin Negative (NEGATIVE) 04/29/21 16:57 Urine Urobilinogen Normal (NORMAL) 04/29/21 16:57 Ur Leukocyte Esterase Negative (NEGATIVE) 04/29/21 16:57 Urine RBC 3-5 /HPF (0-3) A 04/29/21 16:57 Urine WBC 3-5 /HPF (0-5) 04/29/21 16:57 Ur Squamous Epith Cells Rare /HPF (NEGATIVE) 04/29/21 16:57 Urine Bacteria 2+ /HPF (NEGATIVE) 04/29/21 16:57 Ur Culture Indicated? Yes/culture set up 04/29/21 16:57 SARS-CoV-2 (PCR) Negative (NEGATIVE) 04/29/21 11:57 Plan (1) Abscess of left buttock: Status: Acute (2) Diabetes 1.5, managed as type 1: Status: Acute (3) Coronary artery disease: Status: Acute (4) Hypertension: Status: Acute (5) Hypothyroid: Status: Acute (6) GERD (gastroesophageal reflux disease): Status: Acute (7) Anxiety: Status: Acute (8) Acute nontraumatic kidney injury: Status: Acute (9) Hypoglycemia: Status: Acute
[2021-05-02 10:28] LABS: BASOPHILS % (AUTO) 0.1 % (0.2-1.0); HEMATOCRIT 23.5 % (36.0-47.0); HEMOGLOBIN 7.8 g/dL (12.0-16.0); LYMPHOCYTES # (AUTO) 0.5 X10^3/uL (1.3-2.9); LYMPHOCYTES % (AUTO) 5.7 % (21.0-51.0); MEAN CORPUSCULAR HEMOGLOBIN 29.4 pg (27.0-34.0); MEAN CORPUSCULAR HGB CONC 32.9 g/dL (33.0-35.0); MEAN CORPUSCULAR VOLUME 89.2 fL (80.0-100.0); MEAN PLATELET VOLUME 7.8 fL (7.4-11.0); MONOCYTES # (AUTO) 0.3 x10^3/uL (0.3-0.8); MONOCYTES % (AUTO) 4.1 % (0.0-13.0); NEUTROPHILS # (AUTO) 7.7 x10^3/uL (2.2-4.8); NEUTROPHILS % (AUTO) 90.1 % (42.0-75.0); PLATELET COUNT 122 X10^3/uL (150.0-450.0); RED BLOOD COUNT 2.64 X10^6/uL (3.5-5.4); RED CELL DISTRIBUTION WIDTH 14.9 % (11.6-16.5); WHITE BLOOD COUNT 8.6 X10^3/uL (3.6-10.0)
[2021-05-02 10:38] LABS: ALBUMIN 1.8 g/dL (3.4-5.0); CALCIUM 7.4 mg/dL (8.5-10.1); CARBON DIOXIDE 15.2 mmol/L (21-32); COR CA(FOR HYPOALB) 9.2 mg/dL (8.5-10.1); CREATININE 3.52 mg/dL (0.55-1.02); TOTAL PROTEIN 5.6 g/dL (6.4-8.2)
[2021-05-02 10:58] LABS: BAND NEUTROPHILS % 3 % (0-10); PLATELET MORPHOLOGY COMMENT NORMAL (NORMAL)
[2021-05-02] MEDS: SYNTHROID 88 mcg TAB PO SCH (16:13)
[2021-05-02] MEDS: ARICEPT TAB 10 MG PO SCH (20:33)
[2021-05-02] MEDS: ZOCOR TAB 20 MG PO SCH (20:34)
[2021-05-02] MEDS: SNACK - Diabetic Appropriate PO SCH (20:34)
[2021-05-03] MEDS: NS 1,000 ML IV 1,000 ML IV SCH (00:05)
[2021-05-03 06:14] LABS: BASOPHILS % (AUTO) 0.3 % (0.2-1.0); EOSINOPHILS # (AUTO) 0.2 x10^3/uL (0.0-0.2); EOSINOPHILS % (AUTO) 1.9 % (0.9-2.9); HEMOGLOBIN 7.5 g/dL (12.0-16.0); LYMPHOCYTES % (AUTO) 12.4 % (21.0-51.0); MEAN CORPUSCULAR HEMOGLOBIN 29.3 pg (27.0-34.0); MEAN CORPUSCULAR VOLUME 86.2 fL (80.0-100.0); MEAN PLATELET VOLUME 7.8 fL (7.4-11.0); MONOCYTES # (AUTO) 0.5 x10^3/uL (0.3-0.8); MONOCYTES % (AUTO) 6.4 % (0.0-13.0); NEUTROPHILS # (AUTO) 6.6 x10^3/uL (2.2-4.8); PLATELET COUNT 136 X10^3/uL (150.0-450.0); RED BLOOD COUNT 2.56 X10^6/uL (3.5-5.4); RED CELL DISTRIBUTION WIDTH 14.9 % (11.6-16.5); WHITE BLOOD COUNT 8.4 X10^3/uL (3.6-10.0)
[2021-05-03 06:18] LABS: CALCIUM 7.5 mg/dL (8.5-10.1); CREATININE 2.98 mg/dL (0.55-1.02)
[2021-05-03] MEDS: NovoLIN R (or HumuLIN R) SUBCUT PRN ×2 (06:26→11:30)
[2021-05-03] MEDS: AMARYL TAB 4 MG PO SCH (09:11)
[2021-05-03] MEDS: ASPIRIN 81 MG CHEWTAB PO SCH (09:11)
[2021-05-03] MEDS: PLAVIX PO SCH (09:12)
[2021-05-03] MEDS: COREG TAB 12.5 MG PO SCH ×2 (09:12→20:02)
[2021-05-03] MEDS: ISOSORBIDE MONONITRATE ER 24-HR PO SCH (09:13)
[2021-05-03] MEDS: MILK OF MAGNESIA PO SCH (09:13)
[2021-05-03] MEDS: PROTONIX TAB 40 MG PO SCH (09:13)
[2021-05-03] MEDS: ZYVOX 600MG IV 600 MG/300 ML BAG IV SCH ×2 (09:14→21:59)
[2021-05-03] MEDS ORDERED: NS 500 ML IV 500 ML IV ONE (09:37)
--- NOTE | 2021-05-03 10:30 | PCM.PROG ---
Progress Note Progress Note for Day of Date of Exam: 05/03/21 Subjective Subjective: Patient seen at bedside, no acute events overnight. She had dressing changed yesterday as per Dr Forbes's recommendations. Her wound Cx is growing Proteus, prev was MRSA. Her hgb did drop to 7.5 this morning. Labs reviewed Wound Cx: Proteus , Prev Cx MRSA Blood Cx (-) Plan: Continue wound care, IV antibiotics. Follow surgery recommendations. Will transfuse 2 units PRBCs, monitor Hgb. Resume lisinopril. Monitor FSBG. Monitor AM labs. Past Medical Family Social History Past Med/Fam/Surg Hx: No changes since H&P Allergies: Allergies hydrocodone Allergy (Verified 05/01/21 08:16) Review of Systems ROS: No change since H&P Vital Signs and I&O's Vital Signs: Temperature 98.1 F Pulse Rate [Right Brachial] 80 Pulse Rate [Bilateral Radial] 72 Pulse Rate 69 Respiratory Rate 19 Blood Pressure [Right Arm] 174/84 Blood Pressure [Left Arm] 185/76 Blood Pressure 107/52 O2 Sat by Pulse Oximetry 100 Intake and Output: Intake & Output 04/30/21 05/01/21 05/02/21 05/03/21 23:59 23:59 23:59 23:59 Intake Total 2976 / 2976 1718 / 1718 1987 100 / 100 Output Total 100 / 100 Balance 2976 / 2976 1618 / 1618 1987 100 / 100 Physical Exam Oriented: Normal Eyes: Normal Ear: Normal Nose: Normal Throat: Normal Respiratory: Generalized and Diminished Cardiovascular: Normal Auscultation: Bowel Sounds: Normal Tenderness: Normal Skin: Normal Musculoskeletal: Normal (but globally weak) Psychiatric: Anxiety and Depression Mood Description: Calm Affect: Flat Speech Pattern: Clear and Appropriate Laboratory and Diagnostics Result Diagrams: 05/03/21 05:08 05/03/21 05:08 Labs: 05/01/21 14:17 Buttock Wound Gram Stain - Final 05/01/21 14:17 Buttock Wound Culture - Preliminary Proteus Mirabilis 04/29/21 11:05 Blood Blood Culture - Final 04/29/21 11:10 Blood Blood Culture - Preliminary 04/29/21 16:57 Urine,Catheterized Urine Culture - Final Laboratory WBC 8.4 X10^3/uL (3.6-10.0) 05/03/21 05:08 RBC 2.56 X10^6/uL (3.5-5.4) L 05/03/21 05:08 Hgb 7.5 g/dL (12.0-16.0) L 05/03/21 05:08 Hct 22.0 % (36.0-47.0) L 05/03/21 05:08 MCV 86.2 fL (80.0-100.0) 05/03/21 05:08 MCH 29.3 pg (27.0-34.0) 05/03/21 05:08 MCHC 34.0 g/dL (33.0-35.0) 05/03/21 05:08 RDW 14.9 % (11.6-16.5) 05/03/21 05:08 Plt Count 136 X10^3/uL (150.0-450.0) L 05/03/21 05:08 Plt Count Comment Decreased (ADEQUATE) A 05/02/21 10:05 MPV 7.8 fL (7.4-11.0) 05/03/21 05:08 Neut % (Auto) 79.0 % (42.0-75.0) H 05/03/21 05:08 Lymph % (Auto) 12.4 % (21.0-51.0) L 05/03/21 05:08 [place] % (Auto) 6.4 % (0.0-13.0) 05/03/21 05:08 Eos % (Auto) 1.9 % (0.9-2.9) 05/03/21 05:08 Baso % (Auto) 0.3 % (0.2-1.0) 05/03/21 05:08 Neut # (Auto) 6.6 x10^3/uL (2.2-4.8) H 05/03/21 05:08 Lymph # (Auto) 1.0 X10^3/uL (1.3-2.9) L 05/03/21 05:08 [place] # (Auto) 0.5 x10^3/uL (0.3-0.8) 05/03/21 05:08 Eos # (Auto) 0.2 x10^3/uL (0.0-0.2) 05/03/21 05:08 Baso # (Auto) 0.0 X10^3/uL (0.0-0.1) 05/03/21 05:08 Absolute Nucleated RBC 0.0 /100WBC 05/03/21 05:08 Total Counted 100 05/02/21 10:05 Neutrophils % (Manual) 88 % (39-76) H 05/02/21 10:05 Band Neutrophils % 3 % (0-10) 05/02/21 10:05 Lymphocytes % (Manual) 5 % (13-43) L 05/02/21 10:05 Monocytes % (Manual) 4 % (4-9) 05/02/21 10:05 Plt Morphology Comment Normal (NORMAL) 05/02/21 10:05 RBC Morphology Normal (NORMAL) 05/02/21 10:05 Sodium 137 mmol/L (136-145) 05/03/21 05:08 Corrected Sodium 139 mmol/L (136-145) 05/03/21 05:08 Potassium 4.7 mmol/L (3.5-5.1) 05/03/21 05:08 Chloride 109 mmol/L (98-107) H 05/03/21 05:08 Carbon Dioxide 19.0 mmol/L (21-32) L 05/03/21 05:08 BUN 64 mg/dL (7-18) H 05/03/21 05:08 Creatinine 2.98 mg/dL (0.55-1.02) H 05/03/21 05:08 Est GFR (MDRD) Af Amer 19 (>60) L 05/03/21 05:08 Est GFR (MDRD) Non-Af 16 (>60) L 05/03/21 05:08 Glucose 204 mg/dL (65-99) H 05/03/21 05:08 POC Glucose (mg/dL) 221 mg/dL (65-99) H 05/02/21 20:32 Lactic Acid 0.6 mmol/L (0.4-2.0) 04/29/21 11:10 Calcium 7.5 mg/dL (8.5-10.1) L 05/03/21 05:08 Corrected Calcium 9.2 mg/dL (8.5-10.1) 05/02/21 10:05 Total Bilirubin 0.30 mg/dL (0.2-1.0) 05/02/21 10:05 AST 12 Units/L (15-37) L 05/02/21 10:05 ALT 10 Units/L (12-78) L 05/02/21 10:05 Alkaline Phosphatase 107 Units/L (46-116) 05/02/21 10:05 Total Protein 5.6 g/dL (6.4-8.2) L 05/02/21 10:05 Albumin 1.8 g/dL (3.4-5.0) L 05/02/21 10:05 Globulin 3.8 g/dL (2.5-4.5) 05/02/21 10:05 Albumin/Globulin Ratio 0.5 Ratio (1.1-2.1) L 05/02/21 10:05 Specimen Type Catherized urine 04/29/21 16:57 Urine Color Yellow (YELLOW) 04/29/21 16:57 Urine Appearance Slightly hazy (CLEAR) 04/29/21 16:57 Urine pH 5.0 (5.0 - 8.0) 04/29/21 16:57 Ur Specific [place] 1.020 (1.000-1.030) 04/29/21 16:57 Urine Protein 2+ (NEGATIVE) 04/29/21 16:57 Urine Glucose (UA) Negative (NEGATIVE) 04/29/21 16:57 Urine Ketones Negative (NEGATIVE) 04/29/21 16:57 Urine Occult Blood Negative (NEGATIVE) 04/29/21 16:57 Urine Nitrite Negative (NEGATIVE) 04/29/21 16:57 Urine Bilirubin Negative (NEGATIVE) 04/29/21 16:57 Urine Urobilinogen Normal (NORMAL) 04/29/21 16:57 Ur Leukocyte Esterase Negative (NEGATIVE) 04/29/21 16:57 Urine RBC 3-5 /HPF (0-3) A 04/29/21 16:57 Urine WBC 3-5 /HPF (0-5) 04/29/21 16:57 Ur Squamous Epith Cells Rare /HPF (NEGATIVE) 04/29/21 16:57 Urine Bacteria 2+ /HPF (NEGATIVE) 04/29/21 16:57 Ur Culture Indicated? Yes/culture set up 04/29/21 16:57 SARS-CoV-2 (PCR) Negative (NEGATIVE) 04/29/21 11:57 Plan (1) Abscess of left buttock: Status: Acute (2) Diabetes 1.5, managed as type 1: Status: Acute (3) Coronary artery disease: Status: Acute (4) Hypertension: Status: Acute (5) Hypothyroid: Status: Acute (6) GERD (gastroesophageal reflux disease): Status: Acute (7) Anxiety: Status: Acute (8) Acute nontraumatic kidney injury: Status: Acute (9) Anemia: Status: Acute
[2021-05-03] MEDS: ZESTRIL TAB 40 MG PO SCH (11:20)
[2021-05-03] MEDS ORDERED: DEXTROSE 25% IV ONE (17:18)
[2021-05-03] MEDS ORDERED: D50W ABBOJECT SYR ONE (17:27)
[2021-05-03] MEDS: SYNTHROID 88 mcg TAB PO SCH (17:49)
[2021-05-03] MEDS: SNACK - Diabetic Appropriate PO SCH (19:00)
[2021-05-03] MEDS: ZOCOR TAB 20 MG PO SCH (20:02)
[2021-05-03] MEDS: ARICEPT TAB 10 MG PO SCH (20:02)
[2021-05-03 22:58] LABS: HEMATOCRIT 34.4 % (36.0-47.0); HEMOGLOBIN 11.6 g/dL (12.0-16.0)
[2021-05-04 05:01] LABS: BASOPHILS % (AUTO) 0.4 % (0.2-1.0); EOSINOPHILS # (AUTO) 0.4 x10^3/uL (0.0-0.2); EOSINOPHILS % (AUTO) 4.9 % (0.9-2.9); HEMATOCRIT 35.5 % (36.0-47.0); HEMOGLOBIN 11.9 g/dL (12.0-16.0); LYMPHOCYTES # (AUTO) 1.1 X10^3/uL (1.3-2.9); LYMPHOCYTES % (AUTO) 13.7 % (21.0-51.0); MEAN CORPUSCULAR HEMOGLOBIN 29.1 pg (27.0-34.0); MEAN CORPUSCULAR HGB CONC 33.5 g/dL (33.0-35.0); MEAN CORPUSCULAR VOLUME 86.9 fL (80.0-100.0); MEAN PLATELET VOLUME 7.5 fL (7.4-11.0); MONOCYTES # (AUTO) 0.5 x10^3/uL (0.3-0.8); MONOCYTES % (AUTO) 5.9 % (0.0-13.0); NEUTROPHILS # (AUTO) 6.2 x10^3/uL (2.2-4.8); NEUTROPHILS % (AUTO) 75.1 % (42.0-75.0); PLATELET COUNT 120 X10^3/uL (150.0-450.0); RED BLOOD COUNT 4.09 X10^6/uL (3.5-5.4); RED CELL DISTRIBUTION WIDTH 15.3 % (11.6-16.5); WHITE BLOOD COUNT 8.2 X10^3/uL (3.6-10.0)
[2021-05-04 05:04] LABS: BLOOD UREA NITROGEN 53 mg/dL (7-18); CALCIUM 7.6 mg/dL (8.5-10.1); CARBON DIOXIDE 19.2 mmol/L (21-32); CHLORIDE 110 mmol/L (98-107); CREATININE 2.48 mg/dL (0.55-1.02); SODIUM 139 mmol/L (136-145); eGFR NON BLACK RACES 20 (>60)
[2021-05-04] MEDS: AMARYL TAB 4 MG PO SCH (08:31)
[2021-05-04] MEDS: ASPIRIN 81 MG CHEWTAB PO SCH (08:32)
[2021-05-04] MEDS: ISOSORBIDE MONONITRATE ER 24-HR PO SCH (08:33)
[2021-05-04] MEDS: PLAVIX PO SCH (08:33)
[2021-05-04] MEDS: COREG TAB 12.5 MG PO SCH ×2 (08:33→20:59)
[2021-05-04] MEDS: MILK OF MAGNESIA PO SCH ×2 (08:33→08:39)
[2021-05-04] MEDS: ZYVOX 600MG IV 600 MG/300 ML BAG IV SCH ×2 (08:34→20:59)
[2021-05-04] MEDS: ZESTRIL TAB 40 MG PO SCH (08:34)
[2021-05-04] MEDS: PROTONIX TAB 40 MG PO SCH (08:34)
--- NOTE | 2021-05-04 10:30 | PCM.PROG ---
Progress Note Progress Note for Day of Date of Exam: 05/04/21 Subjective Subjective: Patient seen at bedside, patient states she is doing well. Her FSBG did drop into the 30s yesterday evening, given D50. This morning it was 66, drank orange juice and came up to 88. Patient's glimepiride was held. She reports eating a bit. She did receive 2 units of PRBCs, hgb 11.9 today. Labs reviewed Wound Cx: Proteus , Prev Cx MRSA Blood Cx (-) Plan: Continue wound care, IV antibiotics. Follow surgery recommendations. Hold Glimepiride, monitor FSBG. Encouraged patient to eat all her meals. Monitor Hgb. Continue lisinopril. Add hydralazine prn. Monitor AM labs. Past Medical Family Social History Past Med/Fam/Surg Hx: No changes since H&P Allergies: Allergies hydrocodone Allergy (Verified 05/01/21 08:16) Review of Systems ROS: No change since H&P Vital Signs and I&O's Vital Signs: Temperature 98.3 F Pulse Rate [Right Brachial] 75 Pulse Rate [Bilateral Radial] 72 Pulse Rate 69 Respiratory Rate 18 Blood Pressure [Right Arm] 212/90 Blood Pressure [Left Arm] 194/81 Blood Pressure 107/52 O2 Sat by Pulse Oximetry 100 Intake and Output: Intake & Output 05/01/21 05/02/21 05/03/21 05/04/21 23:59 23:59 23:59 23:59 Intake Total 1718 / 1718 1987 2228 / 2228 440 / 440 Output Total 100 / 100 Balance 1618 / 1618 1987 222 / 2228 440 / 440 Physical Exam Oriented: Normal Eyes: Normal Ear: Normal Nose: Normal Throat: Normal Respiratory: Generalized and Diminished Cardiovascular: Normal Auscultation: Bowel Sounds: Normal Tenderness: Normal Skin: Normal Musculoskeletal: Normal (but globally weak) Psychiatric: Anxiety and Depression Mood Description: Calm Affect: Flat Speech Pattern: Clear and Appropriate Laboratory and Diagnostics Result Diagrams: 05/04/21 03:55 05/04/21 03:55 Labs: 05/01/21 14:17 Buttock Wound Gram Stain - Final 05/01/21 14:17 Buttock Wound Culture - Final Proteus Mirabilis Methicillin Resis Staph Aureus 04/29/21 11:05 Blood Blood Culture - Final 04/29/21 11:10 Blood Blood Culture - Preliminary 04/29/21 16:57 Urine,Catheterized Urine Culture - Final Laboratory WBC 8.2 X10^3/uL (3.6-10.0) 05/04/21 03:55 RBC 4.09 X10^6/uL (3.5-5.4) 05/04/21 03:55 Hgb 11.9 g/dL (12.0-16.0) L 05/04/21 03:55 Hct 35.5 % (36.0-47.0) L 05/04/21 03:55 MCV 86.9 fL (80.0-100.0) 05/04/21 03:55 MCH 29.1 pg (27.0-34.0) 05/04/21 03:55 MCHC 33.5 g/dL (33.0-35.0) 05/04/21 03:55 RDW 15.3 % (11.6-16.5) 05/04/21 03:55 Plt Count 120 X10^3/uL (150.0-450.0) L 05/04/21 03:55 Plt Count Comment Decreased (ADEQUATE) A 05/02/21 10:05 MPV 7.5 fL (7.4-11.0) 05/04/21 03:55 Neut % (Auto) 75.1 % (42.0-75.0) H 05/04/21 03:55 Lymph % (Auto) 13.7 % (21.0-51.0) L 05/04/21 03:55 [place] % (Auto) 5.9 % (0.0-13.0) 05/04/21 03:55 Eos % (Auto) 4.9 % (0.9-2.9) H 05/04/21 03:55 Baso % (Auto) 0.4 % (0.2-1.0) 05/04/21 03:55 Neut # (Auto) 6.2 x10^3/uL (2.2-4.8) H 05/04/21 03:55 Lymph # (Auto) 1.1 X10^3/uL (1.3-2.9) L 05/04/21 03:55 [place] # (Auto) 0.5 x10^3/uL (0.3-0.8) 05/04/21 03:55 Eos # (Auto) 0.4 x10^3/uL (0.0-0.2) H 05/04/21 03:55 Baso # (Auto) 0.0 X10^3/uL (0.0-0.1) 05/04/21 03:55 Absolute Nucleated RBC 0.0 /100WBC 05/04/21 03:55 Total Counted 100 05/02/21 10:05 Neutrophils % (Manual) 88 % (39-76) H 05/02/21 10:05 Band Neutrophils % 3 % (0-10) 05/02/21 10:05 Lymphocytes % (Manual) 5 % (13-43) L 05/02/21 10:05 Monocytes % (Manual) 4 % (4-9) 05/02/21 10:05 Plt Morphology Comment Normal (NORMAL) 05/02/21 10:05 RBC Morphology Normal (NORMAL) 05/02/21 10:05 Sodium 139 mmol/L (136-145) 05/04/21 03:55 Corrected Sodium TNP 05/04/21 03:55 Potassium 4.8 mmol/L (3.5-5.1) 05/04/21 03:55 Chloride 110 mmol/L (98-107) H 05/04/21 03:55 Carbon Dioxide 19.2 mmol/L (21-32) L 05/04/21 03:55 BUN 53 mg/dL (7-18) H 05/04/21 03:55 Creatinine 2.48 mg/dL (0.55-1.02) H 05/04/21 03:55 Est GFR (MDRD) Af Amer 24 (>60) L 05/04/21 03:55 Est GFR (MDRD) Non-Af 20 (>60) L 05/04/21 03:55 Glucose 66 mg/dL (65-99) 05/04/21 03:55 POC Glucose (mg/dL) 88 mg/dL (65-99) 05/04/21 06:27 Lactic Acid 0.6 mmol/L (0.4-2.0) 04/29/21 11:10 Calcium 7.6 mg/dL (8.5-10.1) L 05/04/21 03:55 Corrected Calcium 9.2 mg/dL (8.5-10.1) 05/02/21 10:05 Total Bilirubin 0.30 mg/dL (0.2-1.0) 05/02/21 10:05 AST 12 Units/L (15-37) L 05/02/21 10:05 ALT 10 Units/L (12-78) L 05/02/21 10:05 Alkaline Phosphatase 107 Units/L (46-116) 05/02/21 10:05 Total Protein 5.6 g/dL (6.4-8.2) L 05/02/21 10:05 Albumin 1.8 g/dL (3.4-5.0) L 05/02/21 10:05 Globulin 3.8 g/dL (2.5-4.5) 05/02/21 10:05 Albumin/Globulin Ratio 0.5 Ratio (1.1-2.1) L 05/02/21 10:05 Specimen Type Catherized urine 04/29/21 16:57 Urine Color Yellow (YELLOW) 04/29/21 16:57 Urine Appearance Slightly hazy (CLEAR) 04/29/21 16:57 Urine pH 5.0 (5.0 - 8.0) 04/29/21 16:57 Ur Specific [place] 1.020 (1.000-1.030) 04/29/21 16:57 Urine Protein 2+ (NEGATIVE) 04/29/21 16:57 Urine Glucose (UA) Negative (NEGATIVE) 04/29/21 16:57 Urine Ketones Negative (NEGATIVE) 04/29/21 16:57 Urine Occult Blood Negative (NEGATIVE) 04/29/21 16:57 Urine Nitrite Negative (NEGATIVE) 04/29/21 16:57 Urine Bilirubin Negative (NEGATIVE) 04/29/21 16:57 Urine Urobilinogen Normal (NORMAL) 04/29/21 16:57 Ur Leukocyte Esterase Negative (NEGATIVE) 04/29/21 16:57 Urine RBC 3-5 /HPF (0-3) A 04/29/21 16:57 Urine WBC 3-5 /HPF (0-5) 04/29/21 16:57 Ur Squamous Epith Cells Rare /HPF (NEGATIVE) 04/29/21 16:57 Urine Bacteria 2+ /HPF (NEGATIVE) 04/29/21 16:57 Ur Culture Indicated? Yes/culture set up 04/29/21 16:57 SARS-CoV-2 (PCR) Negative (NEGATIVE) 04/29/21 11:57 Blood Type A POSITIVE 05/03/21 09:50 Antibody Screen Negative 05/03/21 09:50 Crossmatch See Detail 05/03/21 09:50 Plan (1) Abscess of left buttock: Status: Acute (2) Diabetes 1.5, managed as type 1: Status: Acute (3) Coronary artery disease: Status: Acute (4) Hypertension: Status: Acute (5) Hypothyroid: Status: Acute (6) GERD (gastroesophageal reflux disease): Status: Acute (7) Anxiety: Status: Acute (8) Acute nontraumatic kidney injury: Status: Acute (9) Anemia: Status: Acute (10) Hypoglycemia: Status: Acute
[2021-05-04] MEDS ORDERED: STERILE WATER IRRIGATION IR ONE (11:53)
[2021-05-04] MEDS: APRESOLINE INJ 20 MG VIAL IVP PRN (16:37)
[2021-05-04] MEDS: NovoLIN R (or HumuLIN R) SUBCUT PRN (16:42)
[2021-05-04] MEDS: SYNTHROID 88 mcg TAB PO SCH (16:43)
[2021-05-04] MEDS: SNACK - Diabetic Appropriate PO SCH (20:40)
[2021-05-04] MEDS: ARICEPT TAB 10 MG PO SCH (20:58)
[2021-05-04] MEDS: ZOCOR TAB 20 MG PO SCH (20:59)
[2021-05-05] MEDS: APRESOLINE INJ 20 MG VIAL IVP PRN ×3 (00:18→16:12)
[2021-05-05 06:09] LABS: BASOPHILS % (AUTO) 0.3 % (0.2-1.0); EOSINOPHILS # (AUTO) 0.4 x10^3/uL (0.0-0.2); EOSINOPHILS % (AUTO) 4.1 % (0.9-2.9); HEMATOCRIT 34.8 % (36.0-47.0); HEMOGLOBIN 11.8 g/dL (12.0-16.0); LYMPHOCYTES # (AUTO) 1.2 X10^3/uL (1.3-2.9); LYMPHOCYTES % (AUTO) 12.5 % (21.0-51.0); MEAN CORPUSCULAR HEMOGLOBIN 29.3 pg (27.0-34.0); MEAN CORPUSCULAR HGB CONC 33.8 g/dL (33.0-35.0); MEAN CORPUSCULAR VOLUME 86.8 fL (80.0-100.0); MEAN PLATELET VOLUME 7.5 fL (7.4-11.0); MONOCYTES # (AUTO) 0.5 x10^3/uL (0.3-0.8); MONOCYTES % (AUTO) 4.9 % (0.0-13.0); NEUTROPHILS # (AUTO) 7.5 x10^3/uL (2.2-4.8); NEUTROPHILS % (AUTO) 78.2 % (42.0-75.0); PLATELET COUNT 107 X10^3/uL (150.0-450.0); RED BLOOD COUNT 4.01 X10^6/uL (3.5-5.4); RED CELL DISTRIBUTION WIDTH 15.2 % (11.6-16.5); WHITE BLOOD COUNT 9.6 X10^3/uL (3.6-10.0)
[2021-05-05 06:20] LABS: CALCIUM 7.5 mg/dL (8.5-10.1); CREATININE 2.35 mg/dL (0.55-1.02)
[2021-05-05] MEDS: ISOSORBIDE MONONITRATE ER 24-HR PO SCH (08:23)
[2021-05-05] MEDS: ASPIRIN 81 MG CHEWTAB PO SCH (08:23)
[2021-05-05] MEDS: AMARYL TAB 4 MG PO SCH (08:23)
[2021-05-05] MEDS: COREG TAB 12.5 MG PO SCH ×2 (08:23→21:48)
[2021-05-05] MEDS: MILK OF MAGNESIA PO SCH (08:26)
[2021-05-05] MEDS: PLAVIX PO SCH (08:26)
[2021-05-05] MEDS: PROTONIX TAB 40 MG PO SCH (08:26)
[2021-05-05] MEDS: ZYVOX 600MG IV 600 MG/300 ML BAG IV SCH ×2 (08:27→21:50)
[2021-05-05] MEDS: ZESTRIL TAB 40 MG PO SCH (08:27)
--- NOTE | 2021-05-05 11:22 | PCM.PROG ---
Progress Note Progress Note for Day of Date of Exam: 05/05/21 Subjective Subjective: Patient seen at bedside, patient states she is feeling ok. Family also present at bedside. Dressing changed this morning. Patient did not have any hypoglycemic events yesterday. She reports eating breakfast. Her BP has been elevated, she did receive hydralazine 10 mg x 3. Labs reviewed Wound Cx: Proteus, MRSA Blood Cx (-) Plan: Continue wound care, IV antibiotics. Follow surgery recommendations. Monitor FSBG. Encouraged patient to eat all her meals. Continue lisinopril. Resume lasix 20 mg. Continue hydralazine prn. Monitor AM labs. Past Medical Family Social History Past Med/Fam/Surg Hx: No changes since H&P Allergies: Allergies hydrocodone Allergy (Verified 05/01/21 08:16) Review of Systems ROS: No change since H&P Vital Signs and I&O's Vital Signs: Temperature 97.5 F Pulse Rate [Right Brachial] 80 Pulse Rate [Bilateral Radial] 72 Pulse Rate 69 Respiratory Rate 20 Blood Pressure [Right Arm] 212/90 Blood Pressure [Left Arm] 204/86 Blood Pressure 107/52 O2 Sat by Pulse Oximetry 97 Intake and Output: Intake & Output 05/02/21 05/03/21 05/04/21 05/05/21 23:59 23:59 23:59 23:59 Intake Total 1987 / 8 1797 / 1797 240 / 240 Balance 1987 / 2227 1797 / 1797 240 / 240 Physical Exam Oriented: Normal Eyes: Normal Ear: Normal Nose: Normal Throat: Normal Respiratory: Generalized and Diminished Cardiovascular: Normal : Normal Auscultation: Bowel Sounds: Normal Tenderness: Normal Skin: Normal Musculoskeletal: Normal (but globally weak) Psychiatric: Anxiety and Depression Mood Description: Calm Affect: Flat Speech Pattern: Clear and Appropriate Laboratory and Diagnostics Result Diagrams: 05/05/21 05:15 05/05/21 05:15 Labs: 04/29/21 11:10 Blood Blood Culture - Final 05/01/21 14:17 Buttock Wound Gram Stain - Final 05/01/21 14:17 Buttock Wound Culture - Final Proteus Mirabilis Methicillin Resis Staph Aureus 04/29/21 11:05 Blood Blood Culture - Final 04/29/21 16:57 Urine,Catheterized Urine Culture - Final Laboratory WBC 9.6 X10^3/uL (3.6-10.0) 05/05/21 05:15 RBC 4.01 X10^6/uL (3.5-5.4) 05/05/21 05:15 Hgb 11.8 g/dL (12.0-16.0) L 05/05/21 05:15 Hct 34.8 % (36.0-47.0) L 05/05/21 05:15 MCV 86.8 fL (80.0-100.0) 05/05/21 05:15 MCH 29.3 pg (27.0-34.0) 05/05/21 05:15 MCHC 33.8 g/dL (33.0-35.0) 05/05/21 05:15 RDW 15.2 % (11.6-16.5) 05/05/21 05:15 Plt Count 107 X10^3/uL (150.0-450.0) L 05/05/21 05:15 Plt Count Comment Decreased (ADEQUATE) A 05/02/21 10:05 MPV 7.5 fL (7.4-11.0) 05/05/21 05:15 Neut % (Auto) 78.2 % (42.0-75.0) H 05/05/21 05:15 Lymph % (Auto) 12.5 % (21.0-51.0) L 05/05/21 05:15 [place] % (Auto) 4.9 % (0.0-13.0) 05/05/21 05:15 Eos % (Auto) 4.1 % (0.9-2.9) H 05/05/21 05:15 Baso % (Auto) 0.3 % (0.2-1.0) 05/05/21 05:15 Neut # (Auto) 7.5 x10^3/uL (2.2-4.8) H 05/05/21 05:15 Lymph # (Auto) 1.2 X10^3/uL (1.3-2.9) L 05/05/21 05:15 [place] # (Auto) 0.5 x10^3/uL (0.3-0.8) 05/05/21 05:15 Eos # (Auto) 0.4 x10^3/uL (0.0-0.2) H 05/05/21 05:15 Baso # (Auto) 0.0 X10^3/uL (0.0-0.1) 05/05/21 05:15 Absolute Nucleated RBC 0.0 /100WBC 05/05/21 05:15 Total Counted 100 05/02/21 10:05 Neutrophils % (Manual) 88 % (39-76) H 05/02/21 10:05 Band Neutrophils % 3 % (0-10) 05/02/21 10:05 Lymphocytes % (Manual) 5 % (13-43) L 05/02/21 10:05 Monocytes % (Manual) 4 % (4-9) 05/02/21 10:05 Plt Morphology Comment Normal (NORMAL) 05/02/21 10:05 RBC Morphology Normal (NORMAL) 05/02/21 10:05 Sodium 132 mmol/L (136-145) L 05/05/21 05:15 Corrected Sodium 133 mmol/L (136-145) L 05/05/21 05:15 Potassium 4.9 mmol/L (3.5-5.1) 05/05/21 05:15 Chloride 105 mmol/L (98-107) 05/05/21 05:15 Carbon Dioxide 19.0 mmol/L (21-32) L 05/05/21 05:15 BUN 47 mg/dL (7-18) H 05/05/21 05:15 Creatinine 2.35 mg/dL (0.55-1.02) H 05/05/21 05:15 Est GFR (MDRD) Af Amer 26 (>60) L 05/05/21 05:15 Est GFR (MDRD) Non-Af 21 (>60) L 05/05/21 05:15 Glucose 129 mg/dL (65-99) H 05/05/21 05:15 POC Glucose (mg/dL) 119 mg/dL (65-99) H 05/05/21 05:14 Lactic Acid 0.6 mmol/L (0.4-2.0) 04/29/21 11:10 Calcium 7.5 mg/dL (8.5-10.1) L 05/05/21 05:15 Corrected Calcium 9.2 mg/dL (8.5-10.1) 05/02/21 10:05 Total Bilirubin 0.30 mg/dL (0.2-1.0) 05/02/21 10:05 AST 12 Units/L (15-37) L 05/02/21 10:05 ALT 10 Units/L (12-78) L 05/02/21 10:05 Alkaline Phosphatase 107 Units/L (46-116) 05/02/21 10:05 Total Protein 5.6 g/dL (6.4-8.2) L 05/02/21 10:05 Albumin 1.8 g/dL (3.4-5.0) L 05/02/21 10:05 Globulin 3.8 g/dL (2.5-4.5) 05/02/21 10:05 Albumin/Globulin Ratio 0.5 Ratio (1.1-2.1) L 05/02/21 10:05 Specimen Type Catherized urine 04/29/21 16:57 Urine Color Yellow (YELLOW) 04/29/21 16:57 Urine Appearance Slightly hazy (CLEAR) 04/29/21 16:57 Urine pH 5.0 (5.0 - 8.0) 04/29/21 16:57 Ur Specific [place] 1.020 (1.000-1.030) 04/29/21 16:57 Urine Protein 2+ (NEGATIVE) 04/29/21 16:57 Urine Glucose (UA) Negative (NEGATIVE) 04/29/21 16:57 Urine Ketones Negative (NEGATIVE) 04/29/21 16:57 Urine Occult Blood Negative (NEGATIVE) 04/29/21 16:57 Urine Nitrite Negative (NEGATIVE) 04/29/21 16:57 Urine Bilirubin Negative (NEGATIVE) 04/29/21 16:57 Urine Urobilinogen Normal (NORMAL) 04/29/21 16:57 Ur Leukocyte Esterase Negative (NEGATIVE) 04/29/21 16:57 Urine RBC 3-5 /HPF (0-3) A 04/29/21 16:57 Urine WBC 3-5 /HPF (0-5) 04/29/21 16:57 Ur Squamous Epith Cells Rare /HPF (NEGATIVE) 04/29/21 16:57 Urine Bacteria 2+ /HPF (NEGATIVE) 04/29/21 16:57 Ur Culture Indicated? Yes/culture set up 04/29/21 16:57 SARS-CoV-2 (PCR) Negative (NEGATIVE) 04/29/21 11:57 Blood Type A POSITIVE 05/03/21 09:50 Antibody Screen Negative 05/03/21 09:50 Crossmatch See Detail 05/03/21 09:50 Plan (1) Abscess of left buttock: Status: Acute (2) Diabetes 1.5, managed as type 1: Status: Acute (3) Coronary artery disease: Status: Acute (4) Hypertension: Status: Acute (5) Hypothyroid: Status: Acute (6) GERD (gastroesophageal reflux disease): Status: Acute (7) Anxiety: Status: Acute (8) Acute nontraumatic kidney injury: Status: Acute (9) Anemia: Status: Acute (10) Hypoglycemia: Status: Acute
[2021-05-05] MEDS: LASIX PO SCH (11:44)
[2021-05-05] MEDS: NovoLIN R (or HumuLIN R) SUBCUT PRN ×2 (12:16→16:13)
[2021-05-05] MEDS: SYNTHROID 88 mcg TAB PO SCH (15:53)
[2021-05-05] MEDS: SNACK - Diabetic Appropriate PO SCH (20:00)
[2021-05-05] MEDS: ARICEPT TAB 10 MG PO SCH (21:48)
[2021-05-05] MEDS: ZOCOR TAB 20 MG PO SCH (21:48)
[2021-05-06] MEDS: APRESOLINE INJ 20 MG VIAL IVP PRN (00:14)
[2021-05-06 06:11] LABS: BLOOD UREA NITROGEN 44 mg/dL (7-18); CALCIUM 7.7 mg/dL (8.5-10.1); CARBON DIOXIDE 19.7 mmol/L (21-32); CHLORIDE 107 mmol/L (98-107); CREATININE 2.18 mg/dL (0.55-1.02); SODIUM 136 mmol/L (136-145); eGFR NON BLACK RACES 23 (>60)
[2021-05-06 06:17] LABS: BASOPHILS % (AUTO) 0.4 % (0.2-1.0); EOSINOPHILS # (AUTO) 0.5 x10^3/uL (0.0-0.2); EOSINOPHILS % (AUTO) 5.4 % (0.9-2.9); HEMATOCRIT 33.6 % (36.0-47.0); HEMOGLOBIN 11.4 g/dL (12.0-16.0); LYMPHOCYTES # (AUTO) 1.1 X10^3/uL (1.3-2.9); LYMPHOCYTES % (AUTO) 12.7 % (21.0-51.0); MEAN CORPUSCULAR HEMOGLOBIN 29.6 pg (27.0-34.0); MEAN CORPUSCULAR VOLUME 87.1 fL (80.0-100.0); MEAN PLATELET VOLUME 7.5 fL (7.4-11.0); MONOCYTES # (AUTO) 0.4 x10^3/uL (0.3-0.8); MONOCYTES % (AUTO) 4.8 % (0.0-13.0); NEUTROPHILS # (AUTO) 6.6 x10^3/uL (2.2-4.8); NEUTROPHILS % (AUTO) 76.7 % (42.0-75.0); PLATELET COUNT 91 X10^3/uL (150.0-450.0); RED BLOOD COUNT 3.85 X10^6/uL (3.5-5.4); RED CELL DISTRIBUTION WIDTH 15.1 % (11.6-16.5); WHITE BLOOD COUNT 8.7 X10^3/uL (3.6-10.0)
[2021-05-06] MEDS: AMARYL TAB 4 MG PO SCH (08:54)
[2021-05-06] MEDS: ASPIRIN 81 MG CHEWTAB PO SCH (08:55)
[2021-05-06] MEDS: COREG TAB 12.5 MG PO SCH (08:55)
[2021-05-06] MEDS: LASIX PO SCH (08:55)
[2021-05-06] MEDS: MILK OF MAGNESIA PO SCH ×2 (08:55→08:56)
[2021-05-06] MEDS: ISOSORBIDE MONONITRATE ER 24-HR PO SCH (08:55)
[2021-05-06] MEDS: PLAVIX PO SCH (08:56)
[2021-05-06] MEDS: ZYVOX 600MG IV 600 MG/300 ML BAG IV SCH (08:57)
[2021-05-06] MEDS: ZESTRIL TAB 40 MG PO SCH (08:57)
[2021-05-06] MEDS: PROTONIX TAB 40 MG PO SCH (08:57)
[2021-05-06 16:01] VITALS: BP 195/84
== END 2021-05-06 14:00 | DRG 683 ==
LOC: ER 10:14 → MED/SURG 13:15
PROVIDERS: ADMIT Internal Medicine; ATTEND Internal Medicine
DX: L02.31 Cutaneous abscess of buttock; N18.9 Chronic kidney disease, unspecified; R26.89 Other abnormalities of gait and mobility; L89.322 Pressure ulcer of left buttock, stage 2; B96.4 Proteus (mirabilis) (morganii) as the cause of diseases classified elsewhere; I12.9 Hypertensive chronic kidney disease with stage 1 through stage 4 chronic kidney disease, or unspecified chronic kidney disease; B95.62 Methicillin resistant Staphylococcus aureus infection as the cause of diseases classified elsewhere; I25.10 Atherosclerotic heart disease of native coronary artery without angina pectoris; K21.9 Gastro-esophageal reflux disease without esophagitis; I87.2 Venous insufficiency (chronic) (peripheral); Z20.822 Contact with and (suspected) exposure to COVID-19; E03.8 Other specified hypothyroidism; D64.89 Other specified anemias; N17.8 Other acute kidney failure

== ENCOUNTER 2021-05-16 08:36 | Inpatient (IN) ==
--- NOTE | 2021-05-16 08:55 | DR.EXTPAIN ---
HPI Time seen Time Seen by Provider: 05/16/21 08:55 PMH PMH Past Medical History: Anxiety, CHF, COPD, Coronary Artery Disease, Diabetes, GERD, Hypertension, Hypothyroidism, [place] and Renal Disease Past Surgical History: Yes Surgical History: Ortho Surgery Family History Family Medical History: Diabetes Mellitus and Hypertension ROS Review of Systems Constitutional: No Symptoms Reported and See HPI Eyes: No Symptoms Reported and See HPI ENTM: No Symptoms Reported and See HPI Respiratoy: No Symptoms Reported and See HPI Cardiovascular: No Symptoms Reported and See HPI Gastrointestinal/Abdominal: No Symptoms Reported and See HPI Genitourinary: No Symptoms Reported and See HPI Neurological: No Symptoms Reported and See HPI Musculoskeletal: No Symptoms Reported and See HPI Integumentary: No Symptoms Reported and See HPI Hematologic/Lymphatic: No Symptoms Reported and See HPI Endocrine: No Symptoms Reported and See HPI Psychiatric: No Symptoms Reported and See HPI All Other Systems: Reviewed and Negative PE Vital Signs Vitals: Pulse Rate 80 Respiratory Rate 42 Blood Pressure [Right Arm] 212/90 Blood Pressure [Left Arm] 195/84 Blood Pressure 121/64 O2 Sat by Pulse Oximetry 99 General Limitations: No Limitations General Appearance: Alert and In No Apparent Distress Head Head Exam: Normal Inspection Eyes Eye exam: Normal Appearance ENT ENT Exam: Normal Exam Neck Neck Exam: Normal Inspection Chest Chest Inspection: Normal Inspection Respiratory Respiratory Exam: Normal Lung Sounds Bilat Cardiovascular Cardiovascular Exam: Regular Rate and Normal Rhythm Abdominal Exam Abdominal Exam: Normal Inspection, Normal Bowel Sounds and Soft Extremities Extremities Exam: Normal Inspection Back Back Exam: Normal Inspection Neurological Neurological Exam: Alert, Oriented X3 and CN II-XII Intact Psychiatric Psychiatric Exam: Normal Affect and Normal Mood Skin Skin Exam: Warm, Dry, Intact and Normal Color ROR Labs Reviewed Result Diagrams: 05/16/21 09:27 05/16/21 09:27 Laboratory: 05/16/21 11:35 Sacral Wound Gram Stain - Final WBC 6.3 X10^3/uL (3.6-10.0) 05/16/21 09:27 RBC 3.56 X10^6/uL (3.5-5.4) 05/16/21 09:27 Hgb 10.4 g/dL (12.0-16.0) L 05/16/21 09:27 Hct 31.4 % (36.0-47.0) L 05/16/21 09:27 MCV 88.3 fL (80.0-100.0) 05/16/21 09: MCH 29.2 pg (27.0-34.0) 05/16/21 MCHC 33.1 g/dL (33.0-35.0) 05/16/21 RDW 14.5 % (11.6-16.5) 05/16/21 Plt Count 138 X10^3/uL (150.0-450.0) L 05/16/21 MPV 8.9 fL (7.4-11.0) 05/16/21 Neut % (Auto) 70.1 % (42.0-75.0) 05/16/21 Lymph % (Auto) 14.6 % (21.0-51.0) L 05/16/21 [place] % (Auto) 9.9 % (0.0-13.0) 05/16/21 Eos % (Auto) 5.0 % (0.9-2.9) H 05/16/21 Baso % (Auto) 0.4 % (0.2-1.0) 05/16/21 Neut # (Auto) 4.4 x10^3/uL (2.2-4.8) 05/16/21 Lymph # (Auto) 0.9 X10^3/uL (1.3-2.9) L 05/16/21 [place] # (Auto) 0.6 x10^3/uL (0.3-0.8) 05/16/21 Eos # (Auto) 0.3 x10^3/uL (0.0-0.2) H 05/16/21 Baso # (Auto) 0.0 X10^3/uL (0.0-0.1) 05/16/21 Absolute Nucleated RBC 0.1 /100WBC 05/16/21 09: Sodium 137 mmol/L (136-145) 05/16/21: Corrected Sodium 139 mmol/L (136-145) 05/16/21: Potassium 6.5 mmol/L (3.5-5.1) H* 05/16/21 09:27 Chloride 107 mmol/L (98-107) 05/16/21 09:27 Carbon Dioxide 24.8 mmol/L (21-32) 05/16/21 09:27 BUN 29 mg/dL (7-18) H 05/16/21 09:27 Creatinine 2.32 mg/dL (0.55-1.02) H 05/16/21 09:27 Est GFR (MDRD) Af Amer 26 (>60) L 05/16/21 09:27 Est GFR (MDRD) Non-Af 21 (>60) L 05/16/21 09:27 Glucose 196 mg/dL (65-99) H 05/16/21 09:27 POC Glucose (mg/dL) 155 mg/dL (65-99) H 05/16/21 08:58 Calcium 8.1 mg/dL (8.5-10.1) L 05/16/21 09:27 Corrected Calcium 9.3 mg/dL (8.5-10.1) 05/16/21 09:27 Total Bilirubin 0.40 mg/dL (0.2-1.0) 05/16/21 09:27 AST 26 Units/L (15-37) 05/16/21 09:27 ALT 23 Units/L (12-78) 05/16/21 09:27 Alkaline Phosphatase 281 Units/L (46-116) H 05/16/21 09:27 Creatine Kinase 107 Units/L (26-192) 05/16/21 09:27 CK-MB (CK-2) 1.9 ng/mL (0-4.0) 05/16/21 09: CK/CKMB % Calc 1.8 % (<4) 05/16/21 09: Troponin I < 0.02 ng/mL (0-1.5) 05/16/21 09:27 Total Protein 6.9 g/dL (6.4-8.2) 05/16/21 09:27 Albumin 2.5 g/dL (3.4-5.0) L 05/16/21 09:27 Globulin 4.4 g/dL (2.5-4.5) 05/16/21 09:27 Albumin/Globulin Ratio 0.6 Ratio (1.1-2.1) L 05/16/21 09:27 Specimen Type Catherized urine 05/16/21 11:35 Urine Color Yellow (YELLOW) 05/16/21 11:35 Urine Appearance Slightly hazy (CLEAR) 05/16/21 11:35 Urine pH 5.0 (5.0 - 8.0) 05/16/21 11:35 Ur Specific [employer] 1.025 (1.000-1.030) 05/16/21 11:35 Urine Protein 3+ (NEGATIVE) 05/16/21 11:35 Urine Glucose (UA) 1+ (NEGATIVE) 05/16/21 11:35 Urine Ketones Negative (NEGATIVE) 05/16/21 11:35 Urine Occult Blood 1+ (NEGATIVE) 05/16/21 11:35 Urine Nitrite Negative (NEGATIVE) 05/16/21 11:35 Urine Bilirubin Negative (NEGATIVE) 05/16/21 11:35 Urine Urobilinogen Normal (NORMAL) 05/16/21 11:35 Ur Leukocyte Esterase Negative (NEGATIVE) 05/16/21 11:35 Urine RBC 0-2 /HPF (0-3) 05/16/21 11:35 Urine WBC 0-2 /HPF (0-5) 05/16/21 11:35 Ur Squamous Epith Cells Few /HPF (NEGATIVE) 05/16/21 11:35 Amorphous Sediment Trace /HPF (NEGATIVE) 05/16/21 11:35 Urine Bacteria Trace /HPF (NEGATIVE) 05/16/21 11:35 Ur Culture Indicated? No/not indicated 05/16/21 11:35 SARS CoV-2 RNA Rapid MARI Negative (NEGATIVE) 05/16/21 12:00 Opioid Opioid Risk Tool Age (Jacky box if 16-45): No History of Preadolescent Sexual Abuse: No Total: 0 Total Score Risk Category: Low Risk Copyright: Jamal BURDICK predicting aberrant behaviors Diagnosis Discharge Problem: Acute hyperkalemia, Acute on chronic renal failure, Acute dehydration, Cellulitis Instructions Forms: Precautions for COVID19 [facility] Patient Portal Social Distancing
[2021-05-16] MEDS ORDERED: NS 1,000 ML IV 1,000 ML ONE (09:09)
[2021-05-16] MEDS: NS 1,000 ML IV 1,000 ML IV SCH (09:15)
[2021-05-16 09:37] VITALS: BMI 24.2
[2021-05-16 09:43] LABS: BASOPHILS % (AUTO) 0.4 % (0.2-1.0); EOSINOPHILS # (AUTO) 0.3 x10^3/uL (0.0-0.2); HEMATOCRIT 31.4 % (36.0-47.0); HEMOGLOBIN 10.4 g/dL (12.0-16.0); LYMPHOCYTES # (AUTO) 0.9 X10^3/uL (1.3-2.9); LYMPHOCYTES % (AUTO) 14.6 % (21.0-51.0); MEAN CORPUSCULAR HEMOGLOBIN 29.2 pg (27.0-34.0); MEAN CORPUSCULAR HGB CONC 33.1 g/dL (33.0-35.0); MEAN CORPUSCULAR VOLUME 88.3 fL (80.0-100.0); MEAN PLATELET VOLUME 8.9 fL (7.4-11.0); MONOCYTES # (AUTO) 0.6 x10^3/uL (0.3-0.8); MONOCYTES % (AUTO) 9.9 % (0.0-13.0); NEUTROPHILS # (AUTO) 4.4 x10^3/uL (2.2-4.8); NEUTROPHILS % (AUTO) 70.1 % (42.0-75.0); PLATELET COUNT 138 X10^3/uL (150.0-450.0); RED BLOOD COUNT 3.56 X10^6/uL (3.5-5.4); RED CELL DISTRIBUTION WIDTH 14.5 % (11.6-16.5); WHITE BLOOD COUNT 6.3 X10^3/uL (3.6-10.0)
[2021-05-16 10:12] LABS: ALANINE AMINOTRANSFERASE 23 Units/L (12-78); ALBUMIN 2.5 g/dL (3.4-5.0); ALKALINE PHOSPHATASE 281 Units/L (46-116); ASPARTATE AMINO TRANSFERASE 26 Units/L (15-37); BLOOD UREA NITROGEN 29 mg/dL (7-18); CALCIUM 8.1 mg/dL (8.5-10.1); CARBON DIOXIDE 24.8 mmol/L (21-32); CHLORIDE 107 mmol/L (98-107); CKMB % 1.8 % (<4); COR CA(FOR HYPOALB) 9.3 mg/dL (8.5-10.1); COR NA(FOR HYPERGLY) 139 mmol/L (136-145); CREATINE KINASE 107 Units/L (26-192); CREATINE KINASE MB 1.9 ng/mL (0-4.0); CREATININE 2.32 mg/dL (0.55-1.02); SODIUM 137 mmol/L (136-145); TOTAL PROTEIN 6.9 g/dL (6.4-8.2); TROPONIN I < 0.02 ng/mL (0-1.5); eGFR NON BLACK RACES 21 (>60)
[2021-05-16] MEDS ORDERED: NovoLIN R (or HumuLIN R) IV ONE (10:32)
[2021-05-16] MEDS ORDERED: CALCIUM GLUCONATE 10% 1 G in NS 100 ML IV 100 ML IV ONE (10:34)
[2021-05-16] MEDS ORDERED: NovoLIN R (or HumuLIN R) ONE ×2 (10:37→14:00)
[2021-05-16] MEDS ORDERED: D50W ABBOJECT SYR ONE (10:37)
[2021-05-16] MEDS: D50W ABBOJECT SYR IV ONE ×2 (10:40→10:58)
[2021-05-16] MEDS ORDERED: NS 100 ML IV + SPIKE MINIBAG* 100 ML IV ONE (10:43)
[2021-05-16] MEDS ORDERED: NS 100 ML IV 100 ML ONE (10:44)
--- NOTE | 2021-05-16 10:57 | RAD ---
HISTORYhyperkalemia htnSTUDYCHEST, 1 [id number]/24/2021FINDINGSCardiac silhouette is normal in size. Left-sided pacemaker noted. There is linear 4 x 1.2 cm opacity projecting over the right lung apex. No acute alveolar infiltrate or effusion is identified. No pneumothorax.IMPRESSIONLinear opacity within the right lung apex as above, which is favored to reflect either subsegmental atelectasis or parenchymal scarring of the right upper lobe. However, contrast enhanced CT should be considered to exclude underlying pulmonary lesion. This can and should be done on a nonemergent basis.Otherwise, no acute cardiopulmonary abnormality.Electronically signed by: MO SHAH (May 16, 2021 10:55:25)
[2021-05-16 11:57] LABS: BILIRUBIN,URINE NEGATIVE (NEGATIVE); BLOOD/HEMOGLOBIN,URINE 1+ (NEGATIVE); GLUCOSE, URINE 1+ (NEGATIVE); KETONES,URINE NEGATIVE (NEGATIVE); LEUKOCYTE ESTERASE ,URINE NEGATIVE (NEGATIVE); NITRITES,URINE NEGATIVE (NEGATIVE); PROTEIN,URINE 3+ (NEGATIVE); UROBILINOGEN,URINE NORMAL (NORMAL)
[2021-05-16 12:05] LABS: AMORPHOUS SEDIMENT,UR TRACE /HPF (NEGATIVE); APPEARANCE,URINE SLIGHTLY HAZY (CLEAR); BACTERIA,URINE TRACE /HPF (NEGATIVE); COLOR,URINE YELLOW (YELLOW); RBC,URINE 0-2 /HPF (0-3); SQUAMOUS EPITHELIAL CELL,UR FEW /HPF (NEGATIVE)
[2021-05-16] MEDS ORDERED: KAYEXALATE SUSP PO NR (15:00)
[2021-05-16 17:04] LABS: CKMB % 1.2 % (<4); CREATINE KINASE 129 Units/L (26-192); CREATINE KINASE MB 1.6 ng/mL (0-4.0); TROPONIN I < 0.02 ng/mL (0-1.5)
[2021-05-16 17:09] LABS: BILIRUBIN,URINE NEGATIVE (NEGATIVE); BLOOD/HEMOGLOBIN,URINE 3+ (NEGATIVE); GLUCOSE, URINE NEGATIVE (NEGATIVE); KETONES,URINE NEGATIVE (NEGATIVE); LEUKOCYTE ESTERASE ,URINE 1+ (NEGATIVE); NITRITES,URINE NEGATIVE (NEGATIVE); PROTEIN,URINE 3+ (NEGATIVE); UROBILINOGEN,URINE NORMAL (NORMAL)
[2021-05-16 17:11] LABS: APPEARANCE,URINE HAZY (CLEAR); COLOR,URINE YELLOW (YELLOW)
[2021-05-16 17:25] LABS: AMORPHOUS SEDIMENT,UR TRACE /HPF (NEGATIVE); BACTERIA,URINE TRACE /HPF (NEGATIVE); SQUAMOUS EPITHELIAL CELL,UR RARE /HPF (NEGATIVE); TRANSITIONAL EPI CELLS,URINE FEW /HPF (NEGATIVE)
[2021-05-16 17:26] LABS: GRANULAR CASTS,URINE FEW /LPF (NEGATIVE); HYALINE CASTS, URINE FEW /LPF (NEGATIVE); MUCUS,URINE FEW /HPF (NEGATIVE)
[2021-05-16] MEDS ORDERED: PHARMACY CONSULT LTC MEDICATIONS XX SCH (18:00)
[2021-05-16] MEDS ORDERED: SNACK - Diabetic Appropriate PO SCH (20:00)
[2021-05-16 22:27] LABS: CKMB % 1.3 % (<4); CREATINE KINASE 98 Units/L (26-192); CREATINE KINASE MB 1.3 ng/mL (0-4.0); TROPONIN I < 0.02 ng/mL (0-1.5)
[2021-05-17] MEDS: NS 1,000 ML IV 1,000 ML IV SCH ×2 (03:56→15:13)
[2021-05-17 06:56] LABS: BASOPHILS % (AUTO) 0.6 % (0.2-1.0); EOSINOPHILS # (AUTO) 0.4 x10^3/uL (0.0-0.2); EOSINOPHILS % (AUTO) 5.8 % (0.9-2.9); HEMATOCRIT 27.3 % (36.0-47.0); HEMOGLOBIN 9.3 g/dL (12.0-16.0); LYMPHOCYTES # (AUTO) 1.2 X10^3/uL (1.3-2.9); LYMPHOCYTES % (AUTO) 20.1 % (21.0-51.0); MEAN CORPUSCULAR HEMOGLOBIN 30.1 pg (27.0-34.0); MEAN CORPUSCULAR HGB CONC 34.2 g/dL (33.0-35.0); MEAN CORPUSCULAR VOLUME 87.9 fL (80.0-100.0); MEAN PLATELET VOLUME 8.6 fL (7.4-11.0); MONOCYTES # (AUTO) 0.8 x10^3/uL (0.3-0.8); NEUTROPHILS # (AUTO) 3.7 x10^3/uL (2.2-4.8); NEUTROPHILS % (AUTO) 60.5 % (42.0-75.0); PLATELET COUNT 138 X10^3/uL (150.0-450.0); RED BLOOD COUNT 3.11 X10^6/uL (3.5-5.4); RED CELL DISTRIBUTION WIDTH 14.5 % (11.6-16.5); WHITE BLOOD COUNT 6.1 X10^3/uL (3.6-10.0)
[2021-05-17 07:28] LABS: ALANINE AMINOTRANSFERASE 18 Units/L (12-78); ALBUMIN 2.3 g/dL (3.4-5.0); ALKALINE PHOSPHATASE 229 Units/L (46-116); ASPARTATE AMINO TRANSFERASE 23 Units/L (15-37); BLOOD UREA NITROGEN 27 mg/dL (7-18); CALCIUM 7.8 mg/dL (8.5-10.1); CARBON DIOXIDE 21.1 mmol/L (21-32); CHLORIDE 111 mmol/L (98-107); COR CA(FOR HYPOALB) 9.2 mg/dL (8.5-10.1); CREATININE 2.26 mg/dL (0.55-1.02); MAGNESIUM 1.6 mg/dL (1.7-2.9); SODIUM 141 mmol/L (136-145); TOTAL PROTEIN 6.4 g/dL (6.4-8.2); eGFR NON BLACK RACES 22 (>60)
[2021-05-17] MEDS: KAYEXALATE SUSP PO SCH ×3 (10:18→22:00)
[2021-05-17] MEDS ORDERED: COLACE CAP 100 MG PO PRN (14:07)
[2021-05-17] MEDS ORDERED: ULTRAM PO PRN (14:07)
[2021-05-17] MEDS ORDERED: ZOFRAN TAB 4 MG PO PRN (14:07)
[2021-05-17] MEDS ORDERED: NovoLIN R (or HumuLIN R) SUBCUT SCH (15:00)
[2021-05-17] MEDS: COREG TAB 12.5 MG PO SCH ×2 (15:14→21:05)
[2021-05-17] MEDS: ISOSORBIDE MONONITRATE ER 24-HR PO SCH (15:14)
[2021-05-17] MEDS: ROCEPHIN 1 GRAM IV PREMIX 1 G/50 ML IV.SOLN. IV SCH (15:14)
[2021-05-17] MEDS: ASPIRIN 81 MG CHEWTAB PO SCH (15:14)
[2021-05-17] MEDS: PLAVIX PO SCH (15:15)
[2021-05-17] MEDS: ZESTRIL TAB 40 MG PO SCH (15:15)
[2021-05-17] MEDS: SYNTHROID 88 mcg TAB PO SCH (15:15)
[2021-05-17] MEDS: SOLU-Medrol 40 MG VIAL IVP SCH ×2 (15:15→21:03)
[2021-05-17] MEDS: ZITHROMAX INJ 500 MG VIAL 500 MG in NS 250 ML IV 250 ML IV SCH (15:16)
--- NOTE | 2021-05-17 15:23 | CT ---
HISTORYAMS status post fallSTUDYHEAD (TRAUMA)COMPARISONNone available.TECHNIQUEAxial non-contrast images of the head were obtained with coronal and sagittal reformats provided.Radiation dose: 1188.90 mGy-cm total DLPFINDINGSOld lacunar infarct in the anterior left thalamus.No abnormal areas of acute attenuation in the brain parenchyma.Nicholas-white differentiation remains intact.No intracranial, extra-axial, fluid collection.No hemorrhage.Periventricular chronic microvascular disease.No mass, mass effect or midline shift.Age related brain parenchymal global atrophy.No ventriculomegaly.No acute fracture.Sinuses are well aerated.Mastoid air cells are well aerated.Globes and intra-orbital contents are unremarkable.IMPRESSIONNo acute intracranial abnormality identified.Electronically signed by: Patrick Muñoz (May 17, 2021 15:21:18)
--- NOTE | 2021-05-17 15:34 | CT ---
HISTORYABN CXR, lung OPACITY, EVAL FOR NEOPLASMSTUDYCT chest without IV contrastCOMPARISONX-ray from previous dayTECHNIQUEMultiple axial images of the chest were obtained from the thoracic inlet to the upper abdomenwithout the administration of IV contrast. Sagittal and coronal reformations are performed. Dose reduction techniques including Automated Exposure Control (AEC) and adjustment of mA and kV were utilized.FINDINGSProminent calcified plaque is seen in the regions of the carotid bifurcations in the neck. Recommend further evaluation with duplex carotid ultrasound if not performed recently.The ovoid density projected overlying the right lung apex on prior x-ray was likely external to the patient. No corresponding abnormality is seen on this exam and the density appears to extend external to the patient on the x-ray.Likely mild to moderate COPD changes are present. Probable CHF and pulmonary edema are present with small pleural effusions. No lobar infiltrate is seen. No suggestion of a pneumothorax.Mildly prominent mediastinal lymph nodes are probably reactive. There is no pericardial effusion. The thoracic aorta is normal in size. Diffuse atherosclerotic calcifications are seen in the aorta. Incidental note is made of an atrophic right kidney. Vascular calcifications are seen in the left renal hilum.IMPRESSIONAbnormality seen on x-ray was artifactual from external tubing.CHF and pulmonary edema are suspected. Small pleural effusions are seen.Likely underlying mild to moderate COPD.Diffuse atherosclerotic changes are seen with possible significant stenoses in the carotid bifurcations. Recommend duplex carotid ultrasound if not performed recently.Electronically signed by: Gary Myles (May 17, 2021 15:31:15)
[2021-05-17] MEDS ORDERED: LASIX IVP ONE (15:46)
--- NOTE | 2021-05-17 16:14 | DR.H&P ---
H&P - History & Physical for Day of: H&P Date: 05/16/21 - Chief Complaint Chief Complaint: Abnormal labs - History of Present Illness History of Present Illness: Patient is an 81 year old white female who is being admitted due to abnormal labs. Patient is a resident of [place]. Labs performed at alf due to AMS. Potassium was 6.1. Kidney function abnormal however this is patients baseline. Daughter reports patient has been confused at the alf for the past several days. Patient is alert but confused. Daughter reports patient at baseline is alert and more oriented than present even though patient has a history of dementia. ROS limited due to confusion. History obtained from daughter. Daughter also reports patient had a fall at the alf on Thursday but did not suffer any injury. No other concerns at present. PCP Dr. Fleming. H DM, CHF, COPD, CAD, CKD, carotid artery stenosis, A. fib, dementia, HTN, and multiple other medical conditions. Patient was recently admitted due to a left gluteal abscess and has been on IV abx at alf. Abscess was I&D last admit. - Past Medical History Past Medical History: Anxiety, CHF, COPD, Coronary Artery Disease, Dementia, Diabetes, GERD, Hypertension, Hypothyroidism, [place], Renal Disease Additional Medical History: Subdural bleed, Cystocele uses pessary, Atrial fibrillation, Chronic respiatory failure but refuses to wear O2 at HS, Carotid artery occlusion. - Past Surgical History Surgical History: Hysterectomy, Ortho Surgery - Family History Family Medical History: Diabetes Mellitus, Cancer, Coronary Artery Disease - Social History Does patient currently use any type of tobacco product: No (1/2 pack per day) Have you used tobacco products in the last 12 months: No Type of Tobacco Use: Cigarettes How many years tobacco product used: 10 Does any household member use tobacco: No Alcohol Use: None Drug Use: None - Medications Home Medications: hydrocodone Allergy (Verified 05/01/21 08:16) - Review of Systems Constitutional: See HPI Eyes: See HPI ENT: See HPI Respiratory: See HPI Cardiovascular: See HPI Gastrointestinal: See HPI Genitourinary: See HPI Musculoskeletal: See HPI Skin: See HPI Neurological: See HPI - Physical Exam Vital Signs: Temperature 98.4 F Pulse Rate [Left Radial] 67 Pulse Rate 80 Respiratory Rate 20 Blood Pressure [Right Arm] 168/67 Blood Pressure [Left Arm] 195/84 Blood Pressure 102/56 O2 Sat by Pulse Oximetry 98 Oriented: Not Oriented Eyes: Normal Ear: Normal Nose: Normal Throat: Normal Respiratory: Rhonchi Throughout Cardiovascular: Murmur : Other ([place]) Auscultation: Bowel Sounds: Normal Palpation: Normal Tenderness: Normal Skin: Decreased Turgur Musculoskeletal: Back:Thoracic, Back:Lumbar, Back:Midline (Generalized global weakness), Tender, Instability Psychiatric: Normal Mood Description: Calm Affect: Normal Speech Pattern: Clear, Inappropriate - Assessment/Plan (1) AMS (altered mental status) Status: Acute Plan: Cultures pending. Continue abx. Verify home meds. Kayexalate. Repeat labs in am (2) Acute hyperkalemia Status: Acute Plan: See above (3) Cellulitis Status: Acute Plan: Abx (4) Abscess of left buttock Status: Acute Plan: Continue antibiotics (5) Chronic kidney disease Status: Chronic Plan: Kidney function appears to be at baseline. Monitor - Allergies Allergies/Adverse Reactions: Allergies Allergy/AdvReac Type Severity Reaction Status Date / Time hydrocodone Allergy Verified 05/01/21 08:16
[2021-05-17 16:25] LABS: ABG ALLEN TEST POS; ABG BASE EXCESS -4.1 mmol/L (-2.0-2.0); ABG HCO3 19.6 mmol/L (22-26)
[2021-05-17] MEDS ORDERED: LASIX ONE (16:35)
[2021-05-17] MEDS: DUONEB 0.5 MG/3 MG (3 mL) NEB SCH ×2 (16:37→17:53)
--- NOTE | 2021-05-17 16:42 | PCM.PROG ---
Progress Note - Subjective Subjective: Patient is an 81 year old white female who was admitted due to abnormal labs. Patient continues to be confused. Daughter reports patient was very confused through the night. CT head pending. Patient audibly wheezing. Daughter reports patient has had a cough without phlegm. No fever noted. No other concerns at present. - Past Medical Family Social History Past Med/Fam/Surg Hx: No changes since H&P Allergies: Allergies hydrocodone Allergy (Verified 05/01/21 08:16) - Review of Systems ROS: No change since H&P - Vital Signs and I&O's Vital Signs: Temperature 98.5 F Pulse Rate [Left Radial] 65 Pulse Rate 80 Respiratory Rate 22 Blood Pressure [Right Arm] 166/67 Blood Pressure [Left Arm] 195/84 Blood Pressure 102/56 O2 Sat by Pulse Oximetry 97 Intake and Output: Intake & Output 05/14/21 05/15/21 05/16/21 05/17/21 23:59 23:59 23:59 23:59 Intake Total 400 / 400 1200 / 1200 Output Total 150 / 150 50 / 50 Balance 250 / 250 1150 / 1150 - Physical Exam Oriented: Not Oriented Eyes: Normal Ear: Normal Nose: Normal Throat: Normal Respiratory: Generalized, Wheezes (Diffuse audible wheezing with tachypnia ) Cardiovascular: Murmur : Other ([place]) Auscultation: Bowel Sounds: Normal Tenderness: Normal Skin: Decreased Turgur Musculoskeletal: Back:Thoracic, Back:Lumbar, Back:Midline (Generalized global weakness), Tender, Instability Psychiatric: Normal Mood Description: Calm Affect: Normal Speech Pattern: Clear, Inappropriate - Laboratory and Diagnostics Result Diagrams: 05/17/21 05:19 05/17/21 05:19 Labs: 05/16/21 11:35 Sacral Wound Gram Stain - Final 05/16/21 11:35 Sacral Wound Culture - Preliminary 05/16/21 09:20 Blood Blood Culture - Preliminary Laboratory WBC 6.1 X10^3/uL (3.6-10.0) 05/17/21 05:19 RBC 3.11 X10^6/uL (3.5-5.4) L 05/17/21 05:19 Hgb 9.3 g/dL (12.0-16.0) L 05/17/21 05:19 Hct 27.3 % (36.0-47.0) L 05/17/21 05:19 MCV 87.9 fL (80.0-100.0) 05/17/21 05:19 MCH 30.1 pg (27.0-34.0) 05/17/21 05:19 MCHC 34.2 g/dL (33.0-35.0) 05/17/21 05:19 RDW 14.5 % (11.6-16.5) 05/17/21 05:19 Plt Count 138 X10^3/uL (150.0-450.0) L 05/17/21 05:19 MPV 8.6 fL (7.4-11.0) 05/17/21 05:19 Neut % (Auto) 60.5 % (42.0-75.0) 05/17/21 05:19 Lymph % (Auto) 20.1 % (21.0-51.0) L 05/17/21 05:19 [place] % (Auto) 13.0 % (0.0-13.0) 05/17/21 05:19 Eos % (Auto) 5.8 % (0.9-2.9) H 05/17/21 05:19 Baso % (Auto) 0.6 % (0.2-1.0) 05/17/21 05:19 Neut # (Auto) 3.7 x10^3/uL (2.2-4.8) 05/17/21 05:19 Lymph # (Auto) 1.2 X10^3/uL (1.3-2.9) L 05/17/21 05:19 [place] # (Auto) 0.8 x10^3/uL (0.3-0.8) 05/17/21 05:19 Eos # (Auto) 0.4 x10^3/uL (0.0-0.2) H 05/17/21 05:19 Baso # (Auto) 0.0 X10^3/uL (0.0-0.1) 05/17/21 05:19 Absolute Nucleated RBC 0.1 /100WBC 05/17/21 05:19 PT 16.6 SECONDS (11.8-14.3) 05/17/21 05:19 INR Target Range - 05/17/21 05:19 INR 1.41 (0.8-1.3) H 05/17/21 05:19 APTT 31.8 SECONDS (22.9-36.5) 05/17/21 05:19 PTT Comment - 05/17/21 05:19 Sample Site Rr 05/17/21 16:20 ABG pH 7.410 (7.35-7.45) 05/17/21 16:20 ABG pCO2 31.0 mmHg (35.0-45.0) L 05/17/21 16:20 ABG pO2 73.0 mmHg (80.0-100.0) L 05/17/21 16:20 ABG HCO3 19.6 mmol/L (22-26) L 05/17/21 16:20 ABG O2 Saturation 95.0 % (90-100) 05/17/21 16:20 ABG Base Excess -4.1 mmol/L (-2.0-2.0) L 05/17/21 16:20 [place] Test Pos 05/17/21 16:20 A-a Gradient 38.0 mmHg 05/17/21 16:20 FiO2 21.0 05/17/21 16:20 Blood Gas Comments Praneeth well. sd 05/17/21 16:20 Sodium 141 mmol/L (136-145) 05/17/21 05:19 Corrected Sodium TNP 05/17/21 05:19 Potassium 6.1 mmol/L (3.5-5.1) H* 05/17/21 05:19 Chloride 111 mmol/L (98-107) H 05/17/21 05:19 Carbon Dioxide 21.1 mmol/L (21-32) 05/17/21 05:19 BUN 27 mg/dL (7-18) H 05/17/21 05:19 Creatinine 2.26 mg/dL (0.55-1.02) H 05/17/21 05:19 Est GFR (MDRD) Af Amer 27 (>60) L 05/17/21 05:19 Est GFR (MDRD) Non-Af 22 (>60) L 05/17/21 05:19 Glucose 57 mg/dL (65-99) L 05/17/21 05:19 POC Glucose (mg/dL) 112 mg/dL (65-99) H 05/17/21 11:08 Calcium 7.8 mg/dL (8.5-10.1) L 05/17/21 05:19 Corrected Calcium 9.2 mg/dL (8.5-10.1) 05/17/21 05:19 Magnesium 1.6 mg/dL (1.7-2.9) L 05/17/21 05:19 Total Bilirubin 0.50 mg/dL (0.2-1.0) 05/17/21 05:19 AST 23 Units/L (15-37) 05/17/21 05:19 ALT 18 Units/L (12-78) 05/17/21 05:19 Alkaline Phosphatase 229 Units/L (46-116) H 05/17/21 05:19 Ammonia 14 umol/L (11-32) 05/16/21 18:42 Creatine Kinase 98 Units/L (26-192) 05/16/21 21:52 CK-MB (CK-2) 1.3 ng/mL (0-4.0) 05/16/21 21:52 CK/CKMB % Calc 1.3 % (<4) 05/16/21 21:52 Troponin I < 0.02 ng/mL (0-1.5) 05/16/21 21:52 Total Protein 6.4 g/dL (6.4-8.2) 05/17/21 05:19 Albumin 2.3 g/dL (3.4-5.0) L 05/17/21 05:19 Globulin 4.1 g/dL (2.5-4.5) 05/17/21 05:19 Albumin/Globulin Ratio 0.6 Ratio (1.1-2.1) L 05/17/21 05:19 Specimen Type Catherized urine 05/16/21 16:45 Urine Color Yellow (YELLOW) 05/16/21 16:45 Urine Appearance Hazy (CLEAR) 05/16/21 16:45 Urine pH 5.0 (5.0 - 8.0) 05/16/21 16:45 Ur Specific [place] 1.025 (1.000-1.030) 05/16/21 16:45 Urine Protein 3+ (NEGATIVE) 05/16/21 16:45 Urine Glucose (UA) Negative (NEGATIVE) 05/16/21 16:45 Urine Ketones Negative (NEGATIVE) 05/16/21 16:45 Urine Occult Blood 3+ (NEGATIVE) 05/16/21 16:45 Urine Nitrite Negative (NEGATIVE) 05/16/21 16:45 Urine Bilirubin Negative (NEGATIVE) 05/16/21 16:45 Urine Urobilinogen Normal (NORMAL) 05/16/21 16:45 Ur Leukocyte Esterase 1+ (NEGATIVE) 05/16/21 16:45 Urine RBC 10-20 /HPF (0-3) A 05/16/21 16:45 Urine WBC 5-10 /HPF (0-5) A 05/16/21 16:45 Ur Squamous Epith Cells Rare /HPF (NEGATIVE) 05/16/21 16:45 Ur Transition Epith Cell Few /HPF (NEGATIVE) 05/16/21 16:45 Amorphous Sediment Trace /HPF (NEGATIVE) 05/16/21 16:45 Urine Bacteria Trace /HPF (NEGATIVE) 05/16/21 16:45 Hyaline Casts Few /LPF (NEGATIVE) 05/16/21 16:45 Granular Casts Few /LPF (NEGATIVE) 05/16/21 16:45 Urine Mucus Few /HPF (NEGATIVE) 05/16/21 16:45 Ur Culture Indicated? No/not indicated 05/16/21 16:45 SARS CoV-2 RNA Rapid MARI Negative (NEGATIVE) 05/16/21 12:00 - Plan (1) Acute bronchitis Status: Acute Plan: CT chest pending. Cultures pending. Add IV Rocephin, Zithromax, Solumedrol. Repeat CXR and labs in am. ABG now and in am. Oxygen prn. Duo nebs. See EMR (2) Acute respiratory distress Status: Acute (3) AMS (altered mental status) Status: Acute Plan: Cultures pending. Continue abx. Verify home meds. Kayexalate. Repeat labs in am. CT head pending (4) Acute hyperkalemia Status: Acute Plan: See above (5) Cellulitis Status: Acute Plan: Abx (6) Abscess of left buttock Status: Acute Plan: Continue antibiotics (7) Chronic kidney disease Status: Chronic Plan: Kidney function appears to be at baseline. Monitor
[2021-05-17] MEDS: NovoLIN R (or HumuLIN R) SUBCUT PRN (21:00)
[2021-05-17] MEDS: ARICEPT TAB 10 MG PO SCH (21:01)
[2021-05-17] MEDS: SNACK - Diabetic Appropriate PO SCH (21:02)
[2021-05-17] MEDS: LIPITOR TAB 40 MG PO SCH (21:04)
[2021-05-17] MEDS: CELEXA PO SCH (22:03)
[2021-05-18] MEDS: DUONEB 0.5 MG/3 MG (3 mL) NEB SCH ×4 (00:10→17:35)
[2021-05-18] MEDS: KAYEXALATE SUSP PO SCH ×4 (04:01→21:53)
[2021-05-18] MEDS: NovoLIN R (or HumuLIN R) SUBCUT PRN ×2 (05:33→17:45)
[2021-05-18 05:34] LABS: ABG BASE EXCESS -4.3 mmol/L (-2.0-2.0); ABG HCO3 20.1 mmol/L (22-26)
[2021-05-18] MEDS: SOLU-Medrol 40 MG VIAL IVP SCH ×3 (05:56→21:53)
--- NOTE | 2021-05-18 06:03 | RAD ---
HISTORYWHEEZING HX: CAD, CHF, TN, HTN, COPD, DM SX: PACEMAKER, HYST.STUDYCHEST, 1 [id number]/2021FINDINGSThe trachea is midline. Borderline heart size. There is a left-sided pacemaker with 2 leads. There is again seen a right sided IJ catheter with the tip in the SVC. The previously seen right upper lobe radiopacities not well seen in the current study. There is perihilar peribronchial thickening. There is mild thickening of the minor fissure since prior. There is vascular cephalization with alveolar radiopacities in the bases. There is blunting of the lateral costo diaphragmatic angles.IMPRESSIONVascular cephalization with peribronchial thickening and bibasal alveolar radiopacities could represent pulmonary edema. Follow-up is recommended.Electronically signed by: Melissa Hewitt (May 18, 2021 06:01:52)
[2021-05-18 06:39] LABS: BASOPHILS % (AUTO) 0.2 % (0.2-1.0); EOSINOPHILS % (AUTO) 0.1 % (0.9-2.9); HEMATOCRIT 26.9 % (36.0-47.0); LYMPHOCYTES # (AUTO) 0.7 X10^3/uL (1.3-2.9); LYMPHOCYTES % (AUTO) 14.8 % (21.0-51.0); MEAN CORPUSCULAR HEMOGLOBIN 29.6 pg (27.0-34.0); MEAN CORPUSCULAR HGB CONC 33.6 g/dL (33.0-35.0); MEAN PLATELET VOLUME 8.2 fL (7.4-11.0); MONOCYTES # (AUTO) 0.1 x10^3/uL (0.3-0.8); MONOCYTES % (AUTO) 2.6 % (0.0-13.0); NEUTROPHILS # (AUTO) 3.6 x10^3/uL (2.2-4.8); NEUTROPHILS % (AUTO) 82.3 % (42.0-75.0); PLATELET COUNT 147 X10^3/uL (150.0-450.0); RED BLOOD COUNT 3.06 X10^6/uL (3.5-5.4); RED CELL DISTRIBUTION WIDTH 14.6 % (11.6-16.5); WHITE BLOOD COUNT 4.4 X10^3/uL (3.6-10.0)
[2021-05-18 07:08] LABS: ALBUMIN 2.3 g/dL (3.4-5.0); CALCIUM 7.2 mg/dL (8.5-10.1); CARBON DIOXIDE 21.4 mmol/L (21-32); COR CA(FOR HYPOALB) 8.6 mg/dL (8.5-10.1); CREATININE 2.16 mg/dL (0.55-1.02); TOTAL PROTEIN 6.5 g/dL (6.4-8.2)
[2021-05-18] MEDS: ZESTRIL TAB 40 MG PO SCH (08:22)
[2021-05-18] MEDS: SYNTHROID 88 mcg TAB PO SCH (08:22)
[2021-05-18] MEDS: PROTONIX TAB 40 MG PO SCH (08:22)
[2021-05-18] MEDS: COREG TAB 12.5 MG PO SCH ×2 (08:22→21:52)
[2021-05-18] MEDS: ISOSORBIDE MONONITRATE ER 24-HR PO SCH (08:22)
[2021-05-18] MEDS: ASPIRIN 81 MG CHEWTAB PO SCH (08:22)
[2021-05-18] MEDS: ROCEPHIN 1 GRAM IV PREMIX 1 G/50 ML IV.SOLN. IV SCH (08:24)
[2021-05-18] MEDS: ZITHROMAX INJ 500 MG VIAL 500 MG in NS 250 ML IV 250 ML IV SCH (08:28)
[2021-05-18] MEDS: PLAVIX PO SCH (09:00)
[2021-05-18] MEDS: DIFLUCAN 200 MG IV PREMIX* 200 MG/100 ML BAG IV SCH (12:30)
--- NOTE | 2021-05-18 17:33 | PCM.PROG ---
Progress Note Progress Note for Day of Date of Exam: 05/18/21 Subjective Subjective: Patient is an 81 year old white female who was admitted due to abnormal labs. She communicates this am and is feeling better overall. She grew out yeast in and from a wound on her buttock. Diflucan IV was started on her this am. CXR revealed increased cephalization so a BNP was done and it was 1600. Past Medical Family Social History Past Med/Fam/Surg Hx: No changes since H&P Allergies: Allergies hydrocodone Allergy (Verified 05/01/21 08:16) Review of Systems ROS: No change since H&P Vital Signs and I&O's Vital Signs: Temperature 98.3 F Pulse Rate [Left Radial] 65 Pulse Rate 99 Respiratory Rate 20 Blood Pressure [Right Arm] 227/89 Blood Pressure [Left Arm] 180/76 Blood Pressure 102/56 O2 Sat by Pulse Oximetry 98 Intake and Output: Intake & Output 05/16/21 05/17/21 05/18/21 05/19/21 11:59 11:59 11:59 11:59 Intake Total 1600 / 1600 2151 / 2151 240 / 240 Output Total 200 / 200 1150 / 1150 200 / 200 Balance 1400 / 1400 1001 / 1001 40 / 40 Physical Exam Oriented: Not Oriented Eyes: Normal Ear: Normal Nose: Normal Throat: Normal Respiratory: Generalized Cardiovascular: Murmur : Other ([place]) Auscultation: Bowel Sounds: Normal Tenderness: Normal Skin: Decreased Turgur Musculoskeletal: Back:Thoracic, Back:Lumbar, Back:Midline (Generalized global weakness), Tender and Instability Psychiatric: Normal Mood Description: Calm Affect: Normal Speech Pattern: Clear Laboratory and Diagnostics Result Diagrams: 05/18/21 05:43 05/18/21 05:43 Labs: 05/16/21 09:27 Blood Blood Culture - Preliminary 05/16/21 09:20 Blood Blood Culture - Preliminary 05/16/21 11:35 Sacral Wound Gram Stain - Final 05/16/21 11:35 Sacral Wound Culture - Preliminary Laboratory WBC 4.4 X10^3/uL (3.6-10.0) 05/18/21 05:43 RBC 3.06 X10^6/uL (3.5-5.4) L 05/18/21 05:43 Hgb 9.0 g/dL (12.0-16.0) L 05/18/21 05:43 Hct 26.9 % (36.0-47.0) L 05/18/21 05:43 MCV 88.0 fL (80.0-100.0) 05/18/21 05:43 MCH 29.6 pg (27.0-34.0) 05/18/21 05:43 MCHC 33.6 g/dL (33.0-35.0) 05/18/21 05:43 RDW 14.6 % (11.6-16.5) 05/18/21 05:43 Plt Count 147 X10^3/uL (150.0-450.0) L 05/18/21 05:43 MPV 8.2 fL (7.4-11.0) 05/18/21 05:43 Neut % (Auto) 82.3 % (42.0-75.0) H 05/18/21 05:43 Lymph % (Auto) 14.8 % (21.0-51.0) L 05/18/21 05:43 [place] % (Auto) 2.6 % (0.0-13.0) 05/18/21 05:43 Eos % (Auto) 0.1 % (0.9-2.9) L 05/18/21 05:43 Baso % (Auto) 0.2 % (0.2-1.0) 05/18/21 05:43 Neut # (Auto) 3.6 x10^3/uL (2.2-4.8) 05/18/21 05:43 Lymph # (Auto) 0.7 X10^3/uL (1.3-2.9) L 05/18/21 05:43 [place] # (Auto) 0.1 x10^3/uL (0.3-0.8) L 05/18/21 05:43 Eos # (Auto) 0.0 x10^3/uL (0.0-0.2) 05/18/21 05:43 Baso # (Auto) 0.0 X10^3/uL (0.0-0.1) 05/18/21 05:43 Absolute Nucleated RBC 0.0 /100WBC 05/18/21 05:43 PT 16.6 SECONDS (11.8-14.3) 05/17/21 05:19 INR Target Range - 05/17/21 05:19 INR 1.41 (0.8-1.3) H 05/17/21 05:19 APTT 31.8 SECONDS (22.9-36.5) 05/17/21 05:19 PTT Comment - 05/17/21 05:19 Sample Site Lb 05/18/21 05:00 ABG pH 7.380 (7.35-7.45) 05/18/21 05:00 ABG pCO2 34.0 mmHg (35.0-45.0) L 05/18/21 05:00 ABG pO2 65.0 mmHg (80.0-100.0) L 05/18/21 05:00 ABG HCO3 20.1 mmol/L (22-26) L 05/18/21 05:00 ABG O2 Saturation 92.0 % (90-100) 05/18/21 05:00 ABG Base Excess -4.3 mmol/L (-2.0-2.0) L 05/18/21 05:00 Warren Test Na 05/18/21 05:00 A-a Gradient 42.0 mmHg 05/18/21 05:00 FiO2 21.0 05/18/21 05:00 Blood Gas Comments Praneeth well sw 05/18/21 05:00 Sodium 141 mmol/L (136-145) 05/18/21 05:43 Corrected Sodium 145 mmol/L (136-145) 05/18/21 05:43 Potassium 5.1 mmol/L (3.5-5.1) 05/18/21 05:43 Chloride 110 mmol/L (98-107) H 05/18/21 05:43 Carbon Dioxide 21.4 mmol/L (21-32) 05/18/21 05:43 BUN 24 mg/dL (7-18) H 05/18/21 05:43 Creatinine 2.16 mg/dL (0.55-1.02) H 05/18/21 05:43 Est GFR (MDRD) Af Amer 28 (>60) L 05/18/21 05:43 Est GFR (MDRD) Non-Af 23 (>60) L 05/18/21 05:43 Glucose 252 mg/dL (65-99) H 05/18/21 05:43 POC Glucose (mg/dL) 170 mg/dL (65-99) H 05/18/21 16:15 Calcium 7.2 mg/dL (8.5-10.1) L 05/18/21 05:43 Corrected Calcium 8.6 mg/dL (8.5-10.1) 05/18/21 05:43 Magnesium 1.6 mg/dL (1.7-2.9) L 05/17/21 05:19 Total Bilirubin 0.40 mg/dL (0.2-1.0) 05/18/21 05:43 AST 23 Units/L (15-37) 05/18/21 05:43 ALT 18 Units/L (12-78) 05/18/21 05:43 Alkaline Phosphatase 227 Units/L (46-116) H 05/18/21 05:43 Ammonia 14 umol/L (11-32) 05/16/21 18:42 Creatine Kinase 98 Units/L (26-192) 05/16/21 21:52 CK-MB (CK-2) 1.3 ng/mL (0-4.0) 05/16/21 21:52 CK/CKMB % Calc 1.3 % (<4) 05/16/21 21:52 Troponin I < 0.02 ng/mL (0-1.5) 05/16/21 21:52 B-Natriuretic Peptide 1600 pg/mL (0-79) H* 05/18/21 05:43 Total Protein 6.5 g/dL (6.4-8.2) 05/18/21 05:43 Albumin 2.3 g/dL (3.4-5.0) L 05/18/21 05:43 Globulin 4.2 g/dL (2.5-4.5) 05/18/21 05:43 Albumin/Globulin Ratio 0.5 Ratio (1.1-2.1) L 05/18/21 05:43 Specimen Type Catherized urine 05/16/21 16:45 Urine Color Yellow (YELLOW) 05/16/21 16:45 Urine Appearance Hazy (CLEAR) 05/16/21 16:45 Urine pH 5.0 (5.0 - 8.0) 05/16/21 16:45 Ur Specific [place] 1.025 (1.000-1.030) 05/16/21 16:45 Urine Protein 3+ (NEGATIVE) 05/16/21 16:45 Urine Glucose (UA) Negative (NEGATIVE) 05/16/21 16:45 Urine Ketones Negative (NEGATIVE) 05/16/21 16:45 Urine Occult Blood 3+ (NEGATIVE) 05/16/21 16:45 Urine Nitrite Negative (NEGATIVE) 05/16/21 16:45 Urine Bilirubin Negative (NEGATIVE) 05/16/21 16:45 Urine Urobilinogen Normal (NORMAL) 05/16/21 16:45 Ur Leukocyte Esterase 1+ (NEGATIVE) 05/16/21 16:45 Urine RBC 10-20 /HPF (0-3) A 05/16/21 16:45 Urine WBC 5-10 /HPF (0-5) A 05/16/21 16:45 Ur Squamous Epith Cells Rare /HPF (NEGATIVE) 05/16/21 16:45 Ur Transition Epith Cell Few /HPF (NEGATIVE) 05/16/21 16:45 Amorphous Sediment Trace /HPF (NEGATIVE) 05/16/21 16:45 Urine Bacteria Trace /HPF (NEGATIVE) 05/16/21 16:45 Hyaline Casts Few /LPF (NEGATIVE) 05/16/21 16:45 Granular Casts Few /LPF (NEGATIVE) 05/16/21 16:45 Urine Mucus Few /HPF (NEGATIVE) 05/16/21 16:45 Ur Culture Indicated? No/not indicated 05/16/21 16:45 Stool Description 2 gms yellowish soft 05/18/21 15:30 Stl Occult Blood (IFOB) Negative (NEGATIVE) 05/18/21 15:30 SARS CoV-2 RNA Rapid MARI Negative (NEGATIVE) 05/16/21 12:00 Radiology Reviewed: Yes Plan (1) Septicemia due to Rebecca species: Status: Acute Plan: IV Diflucan (2) CHF (congestive heart failure): Status: Acute Plan: Lasix 20 mg IV bid. Repeat BNP and CXR in am. (3) Acute bronchitis: Status: Acute Plan: CT chest pending Cultures pending Add IV Rocephin, Zithromax, Solumedrol Repeat CXR and labs in am ABG now and in am Oxygen prn Duo nebs See EMR (4) Acute respiratory distress: Status: Acute (5) AMS (altered mental status): Status: Acute Plan: Cultures pending Continue abx Verify home meds Kayexalate Repeat labs in am CT head pending (6) Acute hyperkalemia: Status: Acute Plan: See above (7) Cellulitis: Status: Acute Plan: Abx (8) Abscess of left buttock: Status: Acute Plan: Continue antibiotics (9) Chronic kidney disease: Status: Chronic Plan: Kidney function appears to be at baseline. Monitor
[2021-05-18] MEDS: SNACK - Diabetic Appropriate PO SCH (20:00)
[2021-05-18] MEDS ORDERED: MELATONIN PO SCH (21:00)
[2021-05-18] MEDS: ARICEPT TAB 10 MG PO SCH (21:51)
[2021-05-18] MEDS: CELEXA PO SCH (21:51)
[2021-05-18] MEDS: LIPITOR TAB 40 MG PO SCH (21:52)
[2021-05-18] MEDS ORDERED: LASIX ONE (23:23)
[2021-05-18] MEDS: LASIX IVP SCH (23:30)
[2021-05-19] MEDS: DUONEB 0.5 MG/3 MG (3 mL) NEB SCH ×4 (00:15→17:00)
[2021-05-19] MEDS: KAYEXALATE SUSP PO SCH (05:04)
[2021-05-19] MEDS: SOLU-Medrol 40 MG VIAL IVP SCH ×3 (05:29→21:13)
--- NOTE | 2021-05-19 05:59 | RAD ---
PROCEDURE: Chest X-ray 1 View .HISTORY: Dyspnea.TECHNIQUE: AP view .COMPARISON: 05/18/2021.TECHNICAL QUALITY: Satisfactory .FINDINGS:Unremarkable cardio mediastinal silhouette and pacemaker on the left.Normal central vascularity.No pulmonary consolidation, pleural fluid, or pneumothorax. Possible mild atelectasis right base.IMPRESSION:1. No pulmonary consolidation.2. Possible mild atelectasis right base.Electronically signed by: Chris Jhaveri (May 19, 2021 05:58:16)
[2021-05-19 06:32] LABS: BASOPHILS % (AUTO) 0.1 % (0.2-1.0); HEMATOCRIT 26.5 % (36.0-47.0); HEMOGLOBIN 8.7 g/dL (12.0-16.0); LYMPHOCYTES # (AUTO) 0.7 X10^3/uL (1.3-2.9); LYMPHOCYTES % (AUTO) 8.5 % (21.0-51.0); MEAN CORPUSCULAR HEMOGLOBIN 29.3 pg (27.0-34.0); MEAN CORPUSCULAR HGB CONC 32.7 g/dL (33.0-35.0); MEAN CORPUSCULAR VOLUME 89.7 fL (80.0-100.0); MEAN PLATELET VOLUME 8.6 fL (7.4-11.0); MONOCYTES # (AUTO) 0.2 x10^3/uL (0.3-0.8); MONOCYTES % (AUTO) 2.9 % (0.0-13.0); NEUTROPHILS # (AUTO) 6.8 x10^3/uL (2.2-4.8); NEUTROPHILS % (AUTO) 88.5 % (42.0-75.0); PLATELET COUNT 161 X10^3/uL (150.0-450.0); RED BLOOD COUNT 2.96 X10^6/uL (3.5-5.4); RED CELL DISTRIBUTION WIDTH 14.7 % (11.6-16.5); WHITE BLOOD COUNT 7.7 X10^3/uL (3.6-10.0)
[2021-05-19 06:59] LABS: ALBUMIN 2.4 g/dL (3.4-5.0); CARBON DIOXIDE 21.8 mmol/L (21-32); COR CA(FOR HYPOALB) 8.3 mg/dL (8.5-10.1); CREATININE 2.39 mg/dL (0.55-1.02); TOTAL PROTEIN 6.5 g/dL (6.4-8.2)
[2021-05-19] MEDS ORDERED: LASIX IVP SCH (09:00)
[2021-05-19] MEDS: ASPIRIN 81 MG CHEWTAB PO SCH (09:10)
[2021-05-19] MEDS: DIFLUCAN 200 MG IV PREMIX* 200 MG/100 ML BAG IV SCH (09:10)
[2021-05-19] MEDS: COREG TAB 12.5 MG PO SCH (09:10)
[2021-05-19] MEDS: PROTONIX TAB 40 MG PO SCH (09:11)
[2021-05-19] MEDS: ZESTRIL TAB 40 MG PO SCH (09:11)
[2021-05-19] MEDS: SYNTHROID 88 mcg TAB PO SCH (09:11)
[2021-05-19] MEDS: ISOSORBIDE MONONITRATE ER 24-HR PO SCH (09:11)
[2021-05-19] MEDS: PLAVIX PO SCH (09:11)
[2021-05-19] MEDS: LASIX IVP SCH (09:30)
[2021-05-19] MEDS: ZITHROMAX INJ 500 MG VIAL 500 MG in NS 250 ML IV 250 ML IV SCH (12:03)
[2021-05-19] MEDS: ROCEPHIN 1 GRAM IV PREMIX 1 G/50 ML IV.SOLN. IV SCH (12:03)
[2021-05-19] MEDS ORDERED: RESTORIL CAP 15 MG PO PRN (13:44)
[2021-05-19] MEDS ORDERED: LASIX IVP ONE (17:00)
--- NOTE | 2021-05-19 18:51 | PCM.PROG ---
Progress Note Progress Note for Day of Date of Exam: 05/19/21 Subjective Subjective: Patient is an 81 year old white female who was admitted due to abnormal labs. She communicates this am and is feeling better overall. She did not rest last pm. Past Medical Family Social History Past Med/Fam/Surg Hx: No changes since H&P Allergies: Allergies hydrocodone Allergy (Verified 05/01/21 08:16) Review of Systems ROS: No change since H&P Vital Signs and I&O's Vital Signs: Temperature 97.4 F Pulse Rate [Left Radial] 70 Pulse Rate 68 Respiratory Rate 22 Blood Pressure [Right Arm] 180/70 Blood Pressure [Left Arm] 190/74 Blood Pressure 102/56 O2 Sat by Pulse Oximetry 100 Intake and Output: Intake & Output 05/17/21 05/18/21 05/19/21 05/20/21 11:59 11:59 11:59 11:59 Intake Total 1600 / 1600 2151 / 2151 490 / 490 250 / 250 Output Total 200 / 200 1150 / 1150 850 / 850 500 / 500 Balance 1400 / 1400 1001 / 1001 -360 / -360 -250 / -250 Physical Exam Oriented: Not Oriented Eyes: Normal Ear: Normal Nose: Normal Throat: Normal Respiratory: Generalized and Wheezes Cardiovascular: Murmur : Other ([place]) Auscultation: Bowel Sounds: Normal Tenderness: Normal Skin: Decreased Turgur Musculoskeletal: Back:Thoracic, Back:Lumbar, Back:Midline (Generalized global weakness), Tender and Instability Psychiatric: Normal Mood Description: Calm Affect: Normal Speech Pattern: Clear Laboratory and Diagnostics Result Diagrams: 05/19/21 05:12 05/19/21 05:12 Labs: 05/16/21 11:35 Sacral Wound Gram Stain - Final 05/16/21 11:35 Sacral Wound Culture - Preliminary 05/16/21 09:27 Blood Blood Culture - Preliminary 05/16/21 09:20 Blood Blood Culture - Preliminary Laboratory WBC 7.7 X10^3/uL (3.6-10.0) 05/19/21 05:12 RBC 2.96 X10^6/uL (3.5-5.4) L 05/19/21 05:12 Hgb 8.7 g/dL (12.0-16.0) L 05/19/21 05:12 Hct 26.5 % (36.0-47.0) L 05/19/21 05:12 MCV 89.7 fL (80.0-100.0) 05/19/21 05:12 MCH 29.3 pg (27.0-34.0) 05/19/21 05:12 MCHC 32.7 g/dL (33.0-35.0) L 05/19/21 05:12 RDW 14.7 % (11.6-16.5) 05/19/21 05:12 Plt Count 161 X10^3/uL (150.0-450.0) 05/19/21 05:12 MPV 8.6 fL (7.4-11.0) 05/19/21 05:12 Neut % (Auto) 88.5 % (42.0-75.0) H 05/19/21 05:12 Lymph % (Auto) 8.5 % (21.0-51.0) L 05/19/21 05:12 [place] % (Auto) 2.9 % (0.0-13.0) 05/19/21 05:12 Eos % (Auto) 0.0 % (0.9-2.9) L 05/19/21 05:12 Baso % (Auto) 0.1 % (0.2-1.0) L 05/19/21 05:12 Neut # (Auto) 6.8 x10^3/uL (2.2-4.8) H 05/19/21 05:12 Lymph # (Auto) 0.7 X10^3/uL (1.3-2.9) L 05/19/21 05:12 [place] # (Auto) 0.2 x10^3/uL (0.3-0.8) L 05/19/21 05:12 Eos # (Auto) 0.0 x10^3/uL (0.0-0.2) 05/19/21 05:12 Baso # (Auto) 0.0 X10^3/uL (0.0-0.1) 05/19/21 05:12 Absolute Nucleated RBC 0.0 /100WBC 05/19/21 05:12 PT 16.6 SECONDS (11.8-14.3) 05/17/21 05:19 INR Target Range - 05/17/21 05:19 INR 1.41 (0.8-1.3) H 05/17/21 05:19 APTT 31.8 SECONDS (22.9-36.5) 05/17/21 05:19 PTT Comment - 05/17/21 05:19 Sample Site Lb 05/18/21 05:00 ABG pH 7.380 (7.35-7.45) 05/18/21 05:00 ABG pCO2 34.0 mmHg (35.0-45.0) L 05/18/21 05:00 ABG pO2 65.0 mmHg (80.0-100.0) L 05/18/21 05:00 ABG HCO3 20.1 mmol/L (22-26) L 05/18/21 05:00 ABG O2 Saturation 92.0 % (90-100) 05/18/21 05:00 ABG Base Excess -4.3 mmol/L (-2.0-2.0) L 05/18/21 05:00 [place] Test Na 05/18/21 05:00 A-a Gradient 42.0 mmHg 05/18/21 05:00 FiO2 21.0 05/18/21 05:00 Blood Gas Comments Praneeth well sw 05/18/21 05:00 Sodium 143 mmol/L (136-145) 05/19/21 05:12 Corrected Sodium 146 mmol/L (136-145) H 05/19/21 05:12 Potassium 4.7 mmol/L (3.5-5.1) 05/19/21 05:12 Chloride 110 mmol/L (98-107) H 05/19/21 05:12 Carbon Dioxide 21.8 mmol/L (21-32) 05/19/21 05:12 BUN 33 mg/dL (7-18) H 05/19/21 05:12 Creatinine 2.39 mg/dL (0.55-1.02) H 05/19/21 05:12 Est GFR (MDRD) Af Amer 25 (>60) L 05/19/21 05:12 Est GFR (MDRD) Non-Af 21 (>60) L 05/19/21 05:12 Glucose 245 mg/dL (65-99) H 05/19/21 05:12 POC Glucose (mg/dL) 219 mg/dL (65-99) H 05/19/21 16:22 Calcium 7.0 mg/dL (8.5-10.1) L 05/19/21 05:12 Corrected Calcium 8.3 mg/dL (8.5-10.1) L 05/19/21 05:12 Magnesium 1.6 mg/dL (1.7-2.9) L 05/17/21 05:19 Total Bilirubin 0.40 mg/dL (0.2-1.0) 05/19/21 05:12 AST 15 Units/L (15-37) 05/19/21 05:12 ALT 15 Units/L (12-78) 05/19/21 05:12 Alkaline Phosphatase 189 Units/L (46-116) H 05/19/21 05:12 Ammonia 14 umol/L (11-32) 05/16/21 18:42 Creatine Kinase 98 Units/L (26-192) 05/16/21 21:52 CK-MB (CK-2) 1.3 ng/mL (0-4.0) 05/16/21 21:52 CK/CKMB % Calc 1.3 % (<4) 05/16/21 21:52 Troponin I < 0.02 ng/mL (0-1.5) 05/16/21 21:52 B-Natriuretic Peptide 1740 pg/mL (0-79) H* 05/19/21 05:12 Total Protein 6.5 g/dL (6.4-8.2) 05/19/21 05:12 Albumin 2.4 g/dL (3.4-5.0) L 05/19/21 05:12 Globulin 4.1 g/dL (2.5-4.5) 05/19/21 05:12 Albumin/Globulin Ratio 0.6 Ratio (1.1-2.1) L 05/19/21 05:12 Specimen Type Catherized urine 05/16/21 16:45 Urine Color Yellow (YELLOW) 05/16/21 16:45 Urine Appearance Hazy (CLEAR) 05/16/21 16:45 Urine pH 5.0 (5.0 - 8.0) 05/16/21 16:45 Ur Specific [place] 1.025 (1.000-1.030) 05/16/21 16:45 Urine Protein 3+ (NEGATIVE) 05/16/21 16:45 Urine Glucose (UA) Negative (NEGATIVE) 05/16/21 16:45 Urine Ketones Negative (NEGATIVE) 05/16/21 16:45 Urine Occult Blood 3+ (NEGATIVE) 05/16/21 16:45 Urine Nitrite Negative (NEGATIVE) 05/16/21 16:45 Urine Bilirubin Negative (NEGATIVE) 05/16/21 16:45 Urine Urobilinogen Normal (NORMAL) 05/16/21 16:45 Ur Leukocyte Esterase 1+ (NEGATIVE) 05/16/21 16:45 Urine RBC 10-20 /HPF (0-3) A 05/16/21 16:45 Urine WBC 5-10 /HPF (0-5) A 05/16/21 16:45 Ur Squamous Epith Cells Rare /HPF (NEGATIVE) 05/16/21 16:45 Ur Transition Epith Cell Few /HPF (NEGATIVE) 05/16/21 16:45 Amorphous Sediment Trace /HPF (NEGATIVE) 05/16/21 16:45 Urine Bacteria Trace /HPF (NEGATIVE) 05/16/21 16:45 Hyaline Casts Few /LPF (NEGATIVE) 05/16/21 16:45 Granular Casts Few /LPF (NEGATIVE) 05/16/21 16:45 Urine Mucus Few /HPF (NEGATIVE) 05/16/21 16:45 Ur Culture Indicated? No/not indicated 05/16/21 16:45 Stool Description 2 gms yellowish soft 05/18/21 15:30 Stl Occult Blood (IFOB) Negative (NEGATIVE) 05/18/21 15:30 SARS CoV-2 RNA Rapid MARI Negative (NEGATIVE) 05/16/21 12:00 Radiology Reviewed: Yes Plan (1) Insomnia: Status: Acute Plan: Restoril 15mg PO at HS. (2) Hypertension: Status: Acute Plan: Increase Coreg to 25mg bid (3) Septicemia due to Rebecca species: Status: Acute Plan: IV Diflucan (4) CHF (congestive heart failure): Status: Acute Plan: Lasix 20 mg IV bid today. Repeat BNP and CXR in am. Heplock IV (5) Acute bronchitis: Status: Acute Plan: CT chest pending Cultures pending Add IV Rocephin, Zithromax, Solumedrol Repeat CXR and labs in am ABG now and in am Oxygen prn Duo nebs See EMR (6) Acute respiratory distress: Status: Acute (7) AMS (altered mental status): Status: Acute Plan: Cultures pending Continue abx Verify home meds Kayexalate Repeat labs in am CT head pending (8) Acute hyperkalemia: Status: Acute Plan: See above (9) Cellulitis: Status: Acute Plan: Abx (10) Abscess of left buttock: Status: Acute Plan: Continue antibiotics (11) Chronic kidney disease: Status: Chronic Plan: Kidney function appears to be at baseline. Monitor
[2021-05-19] MEDS: SNACK - Diabetic Appropriate PO SCH (20:58)
[2021-05-19] MEDS: ARICEPT TAB 10 MG PO SCH (21:08)
[2021-05-19] MEDS: COREG TAB 25 MG PO SCH (21:09)
[2021-05-19] MEDS: CELEXA PO SCH (21:09)
[2021-05-19] MEDS: LIPITOR TAB 40 MG PO SCH (21:09)
[2021-05-19] MEDS: NovoLIN R (or HumuLIN R) SUBCUT PRN (21:29)
[2021-05-20] MEDS: DUONEB 0.5 MG/3 MG (3 mL) NEB SCH ×3 (00:20→11:45)
[2021-05-20] MEDS: SOLU-Medrol 40 MG VIAL IVP SCH ×2 (05:46→15:00)
[2021-05-20] MEDS: NovoLIN R (or HumuLIN R) SUBCUT PRN (05:47)
[2021-05-20 06:12] LABS: BASOPHILS % (AUTO) 0 % (0.2-1.0); HEMATOCRIT 27.2 % (36.0-47.0); HEMOGLOBIN 9.1 g/dL (12.0-16.0); LYMPHOCYTES # (AUTO) 0.7 X10^3/uL (1.3-2.9); LYMPHOCYTES % (AUTO) 12.8 % (21.0-51.0); MEAN CORPUSCULAR HEMOGLOBIN 29.9 pg (27.0-34.0); MEAN CORPUSCULAR HGB CONC 33.5 g/dL (33.0-35.0); MEAN CORPUSCULAR VOLUME 89.4 fL (80.0-100.0); MEAN PLATELET VOLUME 8.6 fL (7.4-11.0); MONOCYTES # (AUTO) 0.4 x10^3/uL (0.3-0.8); MONOCYTES % (AUTO) 8.6 % (0.0-13.0); NEUTROPHILS % (AUTO) 78.6 % (42.0-75.0); PLATELET COUNT 158 X10^3/uL (150.0-450.0); RED BLOOD COUNT 3.05 X10^6/uL (3.5-5.4); RED CELL DISTRIBUTION WIDTH 14.8 % (11.6-16.5); WHITE BLOOD COUNT 5.1 X10^3/uL (3.6-10.0)
[2021-05-20 06:22] LABS: ALBUMIN 2.3 g/dL (3.4-5.0); CALCIUM 6.8 mg/dL (8.5-10.1); CARBON DIOXIDE 21.6 mmol/L (21-32); COR CA(FOR HYPOALB) 8.2 mg/dL (8.5-10.1); CREATININE 2.49 mg/dL (0.55-1.02); TOTAL PROTEIN 6.5 g/dL (6.4-8.2)
[2021-05-20] MEDS ORDERED: NS 100 ML IV 100 ML ONE (08:18)
[2021-05-20] MEDS: SYNTHROID 88 mcg TAB PO SCH (08:23)
[2021-05-20] MEDS: ISOSORBIDE MONONITRATE ER 24-HR PO SCH (08:23)
[2021-05-20] MEDS: ASPIRIN 81 MG CHEWTAB PO SCH (08:23)
[2021-05-20] MEDS: COREG TAB 25 MG PO SCH (08:23)
[2021-05-20] MEDS: PROTONIX TAB 40 MG PO SCH (08:24)
[2021-05-20] MEDS: ZESTRIL TAB 40 MG PO SCH (08:24)
[2021-05-20] MEDS: ZITHROMAX INJ 500 MG VIAL 500 MG in NS 250 ML IV 250 ML IV SCH (09:00)
[2021-05-20] MEDS: PLAVIX PO SCH (10:45)
[2021-05-20] MEDS: DIFLUCAN 200 MG IV PREMIX* 200 MG/100 ML BAG IV SCH (11:14)
[2021-05-20] MEDS: ROCEPHIN 1 GRAM IV PREMIX 1 G/50 ML IV.SOLN. IV SCH (11:14)
[2021-05-20 12:23] VITALS: BP 185/84
== END 2021-05-20 16:30 | disposition short-term general hospital (02) | DRG 872 ==
LOC: ER 08:36 → MED/SURG 14:00
PROVIDERS: ADMIT Internal Medicine; ATTEND Internal Medicine
DX: R06.03 Acute respiratory distress; K21.9 Gastro-esophageal reflux disease without esophagitis; L03.317 Cellulitis of buttock; B95.2 Enterococcus as the cause of diseases classified elsewhere; I25.10 Atherosclerotic heart disease of native coronary artery without angina pectoris; I50.9 Heart failure, unspecified; E87.5 Hyperkalemia; B37.7 Candidal sepsis; J20.8 Acute bronchitis due to other specified organisms; I13.0 Hypertensive heart and chronic kidney disease with heart failure and stage 1 through stage 4 chronic kidney disease, or unspecified chronic kidney disease; Z20.822 Contact with and (suspected) exposure to COVID-19; I48.91 Unspecified atrial fibrillation; R26.89 Other abnormalities of gait and mobility; J44.9 Chronic obstructive pulmonary disease, unspecified; E86.0 Dehydration; E11.65 Type 2 diabetes mellitus with hyperglycemia; R94.31 Abnormal electrocardiogram [ECG] [EKG]; N18.9 Chronic kidney disease, unspecified; R41.82 Altered mental status, unspecified; L02.31 Cutaneous abscess of buttock